=== PATIENT | female | born 1940 | race Caucasian/White ===

== ENCOUNTER 2017-10-10 20:26 | Emergency (ER) | payer MEDICARE, BC ==
[2017-10-10] MEDS ORDERED: HYDROCODONE/APAP 5/325MG TABLET PO ONE (21:01)
--- NOTE | 2017-10-10 21:02 | Emergency Department Record ---
History of Present Illness - General Chief complaint: Extremity Problem Stated complaint: FINGER INJURY Time Seen by Provider: 10/10/17 20:57 Source: Patient, Family Mode of Arrival: Ambulatory Limitations: No limitations - History of Present Illness Initial comments: 77 yo female presents after a fall. She injured her left hand. She only hurts in the left MC area. Skin is intact. She has pain with palpation and ROM. No prior hand fracture or hand disease history. She reports the finger was pointing outward. She straightened by herself prior to arrival. MD Complaint: Extremity pain, Joint pain -: Hour(s) Location: Left -: Yes Arthralgia Radiation: Distal Quality: Aching Consistency: Constant Improves with: Immobilization Worsens with: Exertion, Palpation, Weight bearing Associated Symptoms: Denies other symptoms - Related Data Home Medications Medication Instructions Recorded Confirmed Last Taken Atorvastatin Calcium [Lipitor] 10 mg PO DAILY 10/10/17 10/10/17 Unknown Citalopram Hydrobromide 20 mg PO DAILY 10/10/17 10/10/17 Unknown [Citalopram HBr] Fesoterodine Fumarate [Toviaz] 8 mg PO DAILY 10/10/17 10/10/17 Unknown Levothyroxine Sodium [Synthroid] 150 mcg PO DAILY 10/10/17 10/10/17 Unknown Losartan Potassium [Cozaar] 25 mg PO DAILY 10/10/17 10/10/17 Unknown Meloxicam 15 mg PO DAILY 10/10/17 10/10/17 Unknown Metformin HCl 1,000 mg PO BID 10/10/17 10/10/17 Unknown Metoprolol Succinate [Toprol Xl] 25 mg PO DAILY 10/10/17 10/10/17 Unknown Pioglitazone HCl [Actos] 45 mg PO DAILY 10/10/17 10/10/17 Unknown Previous Rx's Medication Instructions Recorded Hydrocodone/Acetaminophen [Hinckley 1 each PO Q8H #15 tablet 10/10/17 5-325 Tablet] Allergies Allergy/AdvReac Type Severity Reaction Status Date / Time No Known Drug Allergies Allergy Verified 10/10/17 21:20 Review of Systems Constitutional: Denies: Chills, Fever, Malaise, Weakness Eyes: Denies: Eye discharge ENT: Denies: Congestion, Throat pain Respiratory: Denies: Cough Cardiovascular: Denies: Chest pain, Syncope Endocrine: Denies: Fatigue Gastrointestinal: Denies: Abdominal pain, Diarrhea, Nausea, Vomiting Genitourinary: Denies: Dysuria, Urgency Musculoskeletal: Reports: Arthralgia, Joint swelling. Denies: Back pain, Myalgia, Neck pain Skin: Denies: Bruising, Change in color, Rash Neurological: Denies: Headache, Numbness, Tingling, Vertigo, Weakness Psychiatric: Denies: Anxiety Hematological/Lymphatic: Denies: Blood Clots, Easy bleeding, Easy bruising, Swollen glands Physical Exam - General General Appearance: Alert, Oriented x3, Cooperative, No acute distress Limitations: No limitations - Head Head exam: Atraumatic, Normocephalic, Normal inspection Head exam detail: negative: Abrasion, Contusion, Hematoma - Eye Eye exam: Normal appearance. negative: Conjunctival injection, Periorbital swelling, Scleral icterus - ENT ENT exam: Normal exam Ear exam: Normal external inspection Nasal Exam: Normal inspection Mouth exam: Normal external inspection - Neck Neck exam: Normal inspection. negative: Tenderness - Cardiovascular Cardiovascular Exam: Regular rate, Normal rhythm Peripheral Pulses: 2+: Radial (L) - Rectal Rectal exam: Deferred - exam: Deferred - Extremities Extremities exam: Joint swelling, Normal capillary refill, Tenderness. negative : Normal inspection, Full ROM Image of Hand: 1 - mild swelling, no angulation, intact skin, intact sensation - Back Back exam: Reports: Full ROM. Denies: CVA tenderness (R), CVA tenderness (L), Paraspinal tenderness, Tenderness - Neurological Neurological exam: Alert, Oriented X3. negative: Motor sensory deficit - Psychiatric Psychiatric exam: Normal affect, Normal mood - Skin Skin exam: Dry, Intact, Normal color, Warm Course Vital Signs 10/10/17 20:53 Temperature 98 F Pulse Rate [ 74 Pulse Ox Probe] Respiratory 20 Rate Blood Pressure 142/75 [Left Arm] Pulse Ox 98 - Reevaluation(s) Reevaluation #1: XR was read as comminuted distal 5th MC fracture. No dislocation. Splint ordered Referral for follow up made in the ortho specialty clinic 10/10/17 21:31 Disposition Disposition: Discharge Clinical Impression: Metacarpal bone fracture Qualifiers: Encounter type: initial encounter Metacarpal bone: fifth Fracture type: closed Metacarpal location: neck Fracture alignment: displaced Laterality: left Qualified Code(s): S62.337A - Displaced fracture of neck of fifth metacarpal bone, left hand, initial encounter for closed fracture Disposition: Home, Self-Care Condition: (1) Good Instructions: Hand Fracture (ED) Additional Instructions: Call your doctor for close follow up You are being referred to the [facility] Return if you have any concerns with the splint or it comfort Prescriptions: Hydrocodone/Acetaminophen [Hinckley 5-325 Tablet] 1 each PO Q8H #15 tablet Referrals: MARCELINO FELIPE [DOCTOR OF OSTEOPATH] - [facility] [Provider Group] Forms: Patient Portal Access Time of Disposition: 21:34 Quality - Quality Measures Quality Measures: N/A - Blood Pressure Screening Does Patient Have Any of the Following: No Blood Pressure Classification: Hypertensive Reading Systolic Measurement: 142 Diastolic Measurement: 75 Screening for High Blood Pressure: < Pre-Hypertensive BP, F/U Documented > [ G8950] Pre-Hypertensive Follow-up Interventions: Referral to alternative/primary care provider.
--- NOTE | 2017-10-11 08:43 | RADIOLOGY REPORT ---
EXAM: LEFT HAND HISTORY: PAIN. TECHNIQUE: Three views of the left hand were obtained. Comparison: None. Encounter: Initial. FINDINGS: Osteopenia. Comminuted minimally displaced fracture at the base of the distal portion of the fifth metacarpal. Adjacent soft tissue swelling. No other fractures. No dislocation. Degenerative changes throughout the hand and wrist are noted. IMPRESSION: COMMINUTED MINIMALLY DISPLACED FIFTH METACARPAL FRACTURE. OSTEOPENIA. DIFFUSE DEGENERATIVE CHANGE. JOB NUMBER: [id number] MTDD
== END 2017-10-10 22:18 | disposition home or self-care (01) ==
LOC: ER 20:26
DX: S62.317A Displaced fracture of base of fifth metacarpal bone, left hand, initial encounter for closed fracture (principal); W19.XXXA Unspecified fall, initial encounter
CPT/HCPCS: 99283

== ENCOUNTER 2018-06-06 13:21 | Emergency (ER) | payer MEDICARE, BC ==
--- NOTE | 2018-06-06 14:01 | Emergency Department Record ---
History of Present Illness - General Chief Complaint: Fall Injury Stated Complaint: FALL HEAD TRAMA Time Seen by Provider: 06/06/18 13:54 Source: Patient Mode of Arrival: Wheelchair - History of Present Illness Initial Comments: The patient ambulates with a cane and has a hip replacement. She had an unwitnessed fall out on her deck, and hit her head on the plastic ledged step when she fell. She did not lose consciousness. She states she has a headache from the fall. She denies use of blood thinners, aspirin, or ibuprofen. She took an excedrin prior to coming here for her headache. Complaint: Fall Onset/Timin -: Minutes(s) Fall From: Standing When Fall Occurred: Just prior to arrival Fall Witnessed: Yes, by family Place Fall Occurred: Home Loss of Consciousness: None Prolonged Down Time?: No Location: Head Severity: Severe Severity scale (1-10): 9 Quality: Burning, Sharp, Other Associated Symptoms: Headache - Related Data Previous Rx's Medication Instructions Recorded Sulfamethoxazole/Trimethoprim 1 each PO BID #20 tablet 06/06/18 [Bactrim Ds Tablet] Allergies Allergy/AdvReac Type Severity Reaction Status Date / Time No Known Drug Allergies Allergy Verified 10/10/17 21:20 Travel Screening - Travel/Exposure Within Last 30 Days Have you traveled within the last 30 days?: No Review of Systems Reviewed: No additional complaints except as noted below Constitutional: Reports: As per HPI. Denies: Chills, Fever, Malaise, Night sweats, Weakness, Weight change Eyes: Reports: As per HPI. Denies: Eye discharge, Eye pain, Photophobia, Vision change ENT: Reports: As per HPI. Denies: Congestion, Dental pain, Ear pain, Epistaxis , Hearing loss, Throat pain Respiratory: Reports: As per HPI. Denies: Cough, Dyspnea, Hemoptysis, Stridor, Wheezes Cardiovascular: Reports: As per HPI. Denies: Arrhythmia, Chest pain, Dyspnea on exertion, Edema, Murmurs, Orthopnea, Palpitations, Paroxysmal nocturnal dyspnea, Rheumatic Fever, Syncope Endocrine: Reports: As per HPI. Denies: Fatigue, Heat or cold intolerance, Polydipsia, Polyuria Gastrointestinal: Reports: As per HPI. Denies: Abdominal pain, Constipation, Diarrhea, Hematemesis, Hematochezia, Melena, Nausea, Vomiting Genitourinary: Reports: As per HPI. Denies: Abnormal menses, Discharge, Dyspareunia, Dysuria, Frequency, Hematuria, Incontinence, Retention, Urgency Musculoskeletal: Reports: As per HPI. Denies: Arthralgia, Back pain, Gout, Joint swelling, Myalgia, Neck pain Skin: Reports: As per HPI. Denies: Bruising, Change in color, Change in hair/ nails, Lesions, Pruritus, Rash Neurological: Reports: As per HPI. Denies: Abnormal gait, Confusion, Headache, Numbness, Paresthesias, Seizure, Tingling, Tremors, Vertigo, Weakness Psychiatric: Reports: As per HPI. Denies: Anxiety, Auditory hallucinations, Depression, Homicidal thoughts, Suicidal thoughts, Visual hallucinations Hematological/Lymphatic: Reports: As per HPI. Denies: Anemia, Blood Clots, Easy bleeding, Easy bruising, Swollen glands Past Medical History - SOCIAL HISTORY Smoking Status: Never smoker - RESPIRATORY Hx Respiratory Disorders: No - CARDIOVASCULAR Hx Cardio Disorders: Yes Hx Hypertension: Yes Hx Irregular Heartbeat: Yes (afib) - NEURO Hx Neuro Disorders: No - GI Hx GI Disorders: No - Hx Genitourinary Disorders: No - ENDOCRINE Hx Endocrine Disorders: Yes Hx Diabetes: Yes (DM2) Hx Thyroid Disease: Yes (Hypo) - MUSCULOSKELETAL Hx Musculoskeletal Disorders: No - PSYCH Hx Psych Problems: Yes Hx Depression: Yes - HEMATOLOGY/ONCOLOGY Hx Hematology/Oncology Disorders: Yes Hx Cancer: Yes (Breast) Hx Chemotherapy: Yes Hx Radiation Therapy: No Family Medical History Any Significant Family History?: No Physical Exam - General General Appearance: Alert, Oriented x3, Cooperative, Mild distress - Head Head exam: Other (large diagonal laceration at right forehead hairline region approximately 14 cm.) Head exam detail: Laceration (14 cm total length, 5 cm sutured) Image of Face/Head: 1 - laceraton at hairline 1 cm approximate length - Eye Eye exam: Normal appearance, PERRL Pupils: Normal accommodation - ENT ENT exam: Normal exam, Mucous membranes moist, Normal external ear exam, Normal orophraynx, TM's normal bilaterally Ear exam: Normal external inspection. negative: External canal tenderness Nasal Exam: Normal inspection. negative: Discharge, Sinus tenderness Mouth exam: Normal external inspection, Tongue normal Teeth exam: Normal inspection. negative: Dental caries Throat exam: Normal inspection. negative: Tonsillar erythema, Tonsillar exudate - Neck Neck exam: Normal inspection, Full ROM, Other (c collar in place). negative: Tenderness - Respiratory Respiratory exam: Normal lung sounds bilaterally. negative: Chest wall tenderness, Decreased breath sounds, Prolonged expiratory, Respiratory distress - Cardiovascular Cardiovascular Exam: Regular rate, Normal rhythm, Normal heart sounds - GI/Abdominal GI/Abdominal exam: Soft, Normal bowel sounds. negative: Distended, Guarding, Tenderness - Rectal Rectal exam: Deferred - exam: Deferred - Extremities Extremities exam: Normal inspection, Full ROM, Normal capillary refill. negative: Calf tenderness, Pedal edema, Tenderness - Back Back exam: Reports: Normal inspection, Full ROM. Denies: CVA tenderness (R), CVA tenderness (L), Muscle spasm, Paraspinal tenderness, Rash noted, Tenderness , Vertebral tenderness - Neurological Neurological exam: Alert, CN II-XII intact, Normal gait, Oriented X3, Reflexes normal - Psychiatric Psychiatric exam: Normal affect, Normal mood - Skin Skin exam: Dry, Intact, Normal color, Warm Course Vital Signs 06/06/18 13:25 Temperature 98.9 F Pulse Rate 81 Respiratory 18 Rate Blood Pressure 149/83 Pulse Ox 94 L - Reevaluation(s) Reevaluation #1: 06/06/18 15:45 PROCEDURE: Face laceration 5 cm length with abrasion making wound appear 14 cm long. Cleansed wound, copiously irrigated, no FB, no exposed bone, closed wound with 4.0 prolene running interlocking sutures #7. Patient tolerated well. Reevaluation #2: Patient states she can take bactrim without problems. She wishes a script to take with her and will go fill it from here. 06/06/18 16:38 Medical Decision Making - Management Options MDM Management: No Additional Work-up Planned - Data Complexity MDM Data: Labs Ordered and/or Reviewed (UA: 4+ bacteria, 10-15 WBC, + nitrites , tr LE. ), X-Ray Ordered and/or Reviewed (CT Head and C spine Neg. CXR, pelvis both negative for acute fractures.) - Lab Data Result diagrams: 06/06/18 14:55 06/06/18 14:55 Disposition Disposition: Discharge Clinical Impression: Fall (on)(from) incline, initial encounter Laceration of head Qualifiers: Encounter type: initial encounter Location of open wound of head: scalp Foreign body presence: without foreign body Qualified Code(s): S01.01XA - Laceration without foreign body of scalp, initial encounter Head contusion Qualifiers: Encounter type: initial encounter Contusion of head detail: other part of head Qualified Code(s): S00.83XA - Contusion of other part of head, initial encounter Concussion Qualifiers: Encounter type: initial encounter Loss of consciousness presence/duration: without LOC Qualified Code(s): S06.0X0A - Concussion without loss of consciousness, initial encounter UTI (urinary tract infection) Qualifiers: Urinary tract infection type: acute cystitis Hematuria presence: without hematuria Qualified Code(s): N30.00 - Acute cystitis without hematuria Disposition: Home, Self-Care Condition: (1) Good Instructions: Concussion (ED), Fall Prevention for Older Adults (ED) Additional Instructions: Ice to contusions. You may develop "black" beneath your eyes due to the laceration above your eyes. Tylenol as directed as needed for pain. Follow up with PCP as needed. Sutures out here 7 days. Prescriptions: Sulfamethoxazole/Trimethoprim [Bactrim Ds Tablet] 1 each PO BID #20 tablet Forms: Patient Portal Access Quality - Quality Measures Quality Measures: N/A, Blunt Head Trauma (>2yr) - [place] Coma Scale Sophia Coma Scale: Sophia Coma Scale Eye Response: (4) Open spontaneously Motor Response: (6) Obeys commands Verbal Response: (5) Oriented [place] Total: 15 - Blunt Head Trauma - Adult Quality Measure: Measure #415: Utilization of CT for Minor Blunt Head Trauma ICD10 Codes Entered: Yes Was CT ordered: Yes Does Patient Have Any of the Following: No Exclusions Patient Presented Within 24 Hours of Injury: Yes [place] Score: [address] for Minor Blunt Head Trauma: < CT Done, Appropriate Indication > [G9529] Additional Inclusion Criteria: Within 24hrs (AND) GCS of 15 (AND) CT ordered. [ G9530] Indications For CT: Short-Term Memory Deficits w/Loss of Consciousness - Blood Pressure Screening Does Patient Have Any of the Following: No, Active Dx of HTN Blood Pressure Classification: Pre-Hypertensive BP Reading Systolic Measurement: 149 Diastolic Measurement: 83 Screening for High Blood Pressure: Patient Exclusion, Hx of HTN [G9744]
[2018-06-06 15:06] LABS: BASO % 0.2 % (0-6); EOS % 2.9 % (0-6); GRAN % 76.5 % (47-80); HEMATOCRIT 33.6 % (35.0-47.0); HEMOGLOBIN 10.1 gm/dl (11.6-16.0); LYMPH % 13.7 % (16-45); MEAN CELL VOLUME 92.3 fl (81-97); MEAN CORPUSCULAR HEMOGLOBIN 27.7 pg (27-33); MEAN CORPUSCULAR HGB CONC 30.1 g/dl (32-36); MEAN PLATELET VOLUME 8.8 fl (7.4-10.4); MONO % 6.7 % (0-9); PLATELET COUNT 261 K/uL (130-400); RED BLOOD COUNT 3.64 M/uL (3.80-5.40); RED CELL DISTRIBUTION WIDTH 15.4 % (11.5-14.5); WHITE BLOOD COUNT W/O DIFF 5.6 K/uL (4.2-12.2)
[2018-06-06 15:19] LABS: BLOOD UREA NITROGEN 21 mg/dL (8-23); EST GLOMERULAR FILTRATION RATE 57 mL/min; TOTAL PROTEIN 6.1 g/dL (6.6-8.7)
[2018-06-06 15:21] LABS: GLUCOSE,RANDOM 129 mg/dL (74-109)
[2018-06-06 15:23] LABS: PARTIAL THROMBOPLASTIN TIME 24.7 SECONDS (24.5-39.1); PROTHROMBIN TIME (PATIENT) 11.2 SECONDS (9.5-12.1)
[2018-06-06 15:24] LABS: ALBUMIN 3.9 g/dL (4.0-5.0); ALKALINE PHOSPHATASE 84 U/L (35-104); ALT/SGPT 12 U/L (<33); AST/SGOT 17 U/L (10.0-35.0)
[2018-06-06 15:25] LABS: BILIRUBIN,DIRECT < 0.2 mg/dL (0-0.3)
[2018-06-06 16:18] LABS: URINE APPEARANCE CLEAR; URINE BILIRUBIN NEGATIVE (NEGATIVE); URINE BLOOD NEGATIVE (NEGATIVE); URINE COLOR YELLOW; URINE GLUCOSE (UA) NEGATIVE (NEGATIVE); URINE KETONE NEGATIVE (NEGATIVE); URINE LEUKOCYTE ESTERASE SMALL (NEGATIVE); URINE NITRITE POSITIVE (NEGATIVE); URINE PROTEIN NEGATIVE (NEGATIVE); URINE UROBILINOGEN 0.2 E.U./dL (0.20 - 1.00)
[2018-06-06 16:26] LABS: URINE BACTERIA 4+; URINE EPITHELIAL CELLS 0 - 2 (FEW); URINE RBC NONE SEEN (NONE SEEN)
--- NOTE | 2018-06-07 08:05 | CT SCAN REPORT ---
EXAM: CT SCAN HEAD WO CONTRAST HISTORY: INJURY. TECHNIQUE: Sequential axial images were obtained from the foramen magnum to the vertex without contrast administration. FINDINGS: Brain volume is normal. There is periventricular small vessel ischemic change. No large territorial infarct, hemorrhage, mass effect, or midline shift. The orbits, paranasal sinuses, and mastoid air cells are normal. No depressed skull fracture. IMPRESSION: NO ACUTE INTRACRANIAL ABNORMALITIES APPRECIATED. JOB NUMBER: [id number] [facility]
--- NOTE | 2018-06-07 08:09 | CT SCAN REPORT ---
EXAM: CT SCAN CERVICAL SPINE WO CONTRAST HISTORY: NECK PAIN. TECHNIQUE: Sequential axial images were obtained through the cervical spine without intravenous contrast administration. Sagittal and coronal reformatted images were performed. FINDINGS: There is multilevel degenerative change. No evidence of fracture, subluxation, or perched facet. There is pannus formation at the atlantoaxial joint space. IMPRESSION: MULTILEVEL DEGENERATIVE CHANGE. NO EVIDENCE OF FRACTURE, SUBLUXATION, OR PERCHED FACET. PANNUS AT THE ATLANTOAXIAL JOINT SPACE. JOB [facility]BER: [id number] [facility]
--- NOTE | 2018-06-07 08:11 | RADIOLOGY REPORT ---
EXAM: PELVIS, AP HISTORY: INJURY. TECHNIQUE: Single AP view of the pelvis was performed. COMPARISON: None. FINDINGS: Postop surgical change of the left hip joint. Underlying osteopenia. No evidence of acute fracture. IMPRESSION: 1. UNDERLYING OSTEOPENIA. 2. LEFT HIP PROSTHESIS IN PLACE. JOB NUMBER: [id number] [facility]
--- NOTE | 2018-06-07 08:16 | RADIOLOGY REPORT ---
EXAM: CHEST 2 VIEWS HISTORY: DIFFICULTY IN BREATHING. TECHNIQUE: Frontal and lateral views of the chest were performed. COMPARISON: 11/22/2015 FINDINGS: Heart size normal. Lung tapia are clear. No infiltrate or pleural effusion. Postop surgical clips, left axillary region. Postop surgical change, right shoulder. IMPRESSION: NO ACUTE PULMONARY DISEASE PROCESS. JOB NUMBER: [id number] MTDD
== END 2018-06-06 17:01 | disposition home or self-care (01) ==
LOC: ER 13:21
DX: S06.0X0A Concussion without loss of consciousness, initial encounter (principal); S01.81XA Laceration without foreign body of other part of head, initial encounter; W18.30XA Fall on same level, unspecified, initial encounter; I48.91 Unspecified atrial fibrillation; I10 Essential (primary) hypertension; E11.9 Type 2 diabetes mellitus without complications; Z79.84 Long term (current) use of oral hypoglycemic drugs; N39.0 Urinary tract infection, site not specified; B96.20 Unspecified Escherichia coli [E. coli] as the cause of diseases classified elsewhere; E03.9 Hypothyroidism, unspecified
CPT/HCPCS: 12013; 70450; 71046; 72125; 72170; 80048; 80076; 81001; 83605; 85025; 85379; 85610; 85730; 99283

== ENCOUNTER 2018-06-13 11:32 | Emergency (ER) | payer MEDICARE, BC ==
--- NOTE | 2018-06-13 12:00 | Emergency Department Record ---
History of Present Illness - General Chief Complaint: Suture removal Stated Complaint: SUTURE REMOVAL FROM HEAD Time Seen by Provider: 06/13/18 11:53 Source: Patient Mode of arrival: Ambulatory Limitations: No limitations - History of Present Illness Initial Comments: pt wel healed. no vomiting Onset/Timin -: Week(s) Initial Visit For: Other Returns Today for: Staple/stitch removal Symptoms Since Prior Visit: No new symptoms Associated Symptoms: None - Related Data Previous Rx's Medication Instructions Recorded Sulfamethoxazole/Trimethoprim 1 each PO BID #20 tablet 06/06/18 [Bactrim Ds Tablet] Allergies Allergy/AdvReac Type Severity Reaction Status Date / Time No Known Drug Allergies Allergy Verified 10/10/17 21:20 Travel Screening - Travel/Exposure Within Last 30 Days Have you traveled within the last 30 days?: No - Travel/Exposure Within Last Year Have you traveled outside the [place] in the last year?: No - Additonal Travel Details Have you been exposed to anyone with a communicable illness?: No - Travel Symptoms Symptom Screening: None Review of Systems Reviewed: No additional complaints except as noted below Constitutional: Reports: As per HPI. Denies: Chills, Fever, Malaise, Night sweats, Weakness, Weight change Eyes: Reports: As per HPI. Denies: Eye discharge, Eye pain, Photophobia, Vision change ENT: Reports: As per HPI. Denies: Congestion, Dental pain, Ear pain, Epistaxis , Hearing loss, Throat pain Respiratory: Reports: As per HPI. Denies: Cough, Dyspnea, Hemoptysis, Stridor, Wheezes Cardiovascular: Reports: As per HPI. Denies: Arrhythmia, Chest pain, Dyspnea on exertion, Edema, Murmurs, Orthopnea, Palpitations, Paroxysmal nocturnal dyspnea, Rheumatic Fever, Syncope Endocrine: Reports: As per HPI. Denies: Fatigue, Heat or cold intolerance, Polydipsia, Polyuria Gastrointestinal: Reports: As per HPI. Denies: Abdominal pain, Constipation, Diarrhea, Hematemesis, Hematochezia, Melena, Nausea, Vomiting Genitourinary: Reports: As per HPI. Denies: Abnormal menses, Discharge, Dyspareunia, Dysuria, Frequency, Hematuria, Incontinence, Retention, Urgency Musculoskeletal: Reports: As per HPI. Denies: Arthralgia, Back pain, Gout, Joint swelling, Myalgia, Neck pain Skin: Reports: As per HPI. Denies: Bruising, Change in color, Change in hair/ nails, Lesions, Pruritus, Rash Neurological: Reports: As per HPI. Denies: Abnormal gait, Confusion, Headache, Numbness, Paresthesias, Seizure, Tingling, Tremors, Vertigo, Weakness Psychiatric: Reports: As per HPI. Denies: Anxiety, Auditory hallucinations, Depression, Homicidal thoughts, Suicidal thoughts, Visual hallucinations Hematological/Lymphatic: Reports: As per HPI. Denies: Anemia, Blood Clots, Easy bleeding, Easy bruising, Swollen glands Past Medical History - SOCIAL HISTORY Smoking Status: Never smoker Alcohol Use: Rare Drug Use: None - RESPIRATORY Hx Respiratory Disorders: No - CARDIOVASCULAR Hx Cardio Disorders: Yes Hx Hypertension: Yes Hx Irregular Heartbeat: Yes (afib) - NEURO Hx Neuro Disorders: No - GI Hx GI Disorders: No - Hx Genitourinary Disorders: No - ENDOCRINE Hx Endocrine Disorders: Yes Hx Diabetes: Yes (DM2) Hx Thyroid Disease: Yes (Hypo) - MUSCULOSKELETAL Hx Musculoskeletal Disorders: No - PSYCH Hx Psych Problems: Yes Hx Depression: Yes - HEMATOLOGY/ONCOLOGY Hx Hematology/Oncology Disorders: Yes Hx Cancer: Yes (Breast) Hx Chemotherapy: Yes Hx Radiation Therapy: No Family Medical History Any Significant Family History?: No Physical Exam - General General Appearance: Alert, Oriented x3, Cooperative, No acute distress - Head Head exam: Normal inspection Head exam detail: Laceration - Eye Eye exam: Normal appearance, PERRL Pupils: Normal accommodation - ENT ENT exam: Normal exam, Mucous membranes moist, Normal external ear exam, Normal orophraynx Ear exam: Normal external inspection. negative: External canal tenderness Nasal Exam: Normal inspection. negative: Discharge, Sinus tenderness Mouth exam: Normal external inspection, Tongue normal Teeth exam: Normal inspection. negative: Dental caries Throat exam: Normal inspection. negative: Tonsillar erythema, Tonsillar exudate - Neck Neck exam: Normal inspection, Full ROM. negative: Tenderness - Respiratory Respiratory exam: Normal lung sounds bilaterally. negative: Respiratory distress - Cardiovascular Cardiovascular Exam: Regular rate, Normal rhythm, Normal heart sounds - GI/Abdominal GI/Abdominal exam: Soft, Normal bowel sounds. negative: Tenderness - Rectal Rectal exam: Deferred - exam: Deferred - Extremities Extremities exam: Normal inspection, Full ROM, Normal capillary refill. negative: Tenderness - Back Back exam: Reports: Normal inspection, Full ROM. Denies: Muscle spasm, Rash noted, Tenderness - Neurological Neurological exam: Alert, CN II-XII intact, Normal gait, Oriented X3 - Psychiatric Psychiatric exam: Normal affect, Normal mood - Skin Skin exam: Dry, Intact, Normal color, Warm Type of lesion: Laceration (well healed) Course Vital Signs 06/13/18 11:36 Temperature 98.5 F Pulse Rate 76 Respiratory 18 Rate Blood Pressure 143/72 Pulse Ox 93 L Disposition Disposition: Discharge Clinical Impression: Visit for suture removal Condition: (1) Good Instructions: Stitches Removal (ED) Additional Instructions: follow up with family doctor. return sooner if worse. Quality - Quality Measures Quality Measures: N/A - Blood Pressure Screening Does Patient Have Any of the Following: Active Dx of HTN Blood Pressure Classification: Hypertensive Reading Systolic Measurement: 143 Diastolic Measurement: 72 Screening for High Blood Pressure: Patient Exclusion, Hx of HTN [G9744]
== END 2018-06-13 12:14 | disposition home or self-care (01) ==
LOC: ER 11:32
DX: Z48.02 Encounter for removal of sutures (principal); I10 Essential (primary) hypertension

== ENCOUNTER 2018-07-24 14:37 | Inpatient (IN) | payer MEDICARE, BC ==
[2018-07-25] MEDS ORDERED: HYDROCODONE/APAP 5/325MG TABLET PO PRN (14:49)
[2018-07-25] MEDS ORDERED: TRAMADOL HCL 50 MG TABLET PO PRN (15:00)
--- NOTE | 2018-07-25 15:44 | Rehab Evaluation ---
Patient Information - Patient Information Diagnosis: R Hip OA Ordered Treatment: OT Evaluate and Treat Status: Initial Evaluation Surgery: Yes (R HARMAN) Date of Surgery: 07/22/18 Past Medical/Surgical Hx: PAST MEDICAL/SURGICAL HISTORY Past Surgical History Bilateral Shoulder Left Hip Replacement Right Knee Replacement Bilateral Mastectomy Cholecystectomy Appendectomy Appendectomy Hysterectomy PMH - Respiratory Hx Respiratory Disorders Yes Hx Asthma No Hx Bronchitis No Hx Chronic Obstructive No Pulmonary Disease (COPD) Hx Dyspnea No Hx Pneumonia No Hx Pulmonary Embolism No Hx Sleep Apnea Yes Hx Tuberculosis No Hx of CPAP Yes: Pt does not use. PMH - Cardiovascular Hx Cardiovascular Disorders Yes Hx Abnormal EKG No Hx Cardiac Catheterization No Hx Chest Pain No Hx Congestive Heart Failure No Hx Deep Vein Thrombosis No Hx Edema No Hx Heart Attack No Hx Hypertension Yes Hx Hypotension No Hx Irregular Heartbeat Yes: afib Hx Palpitations No Hx Pacemaker/Defibrillator No Hx Vascular Disease No PMH - Neuro Hx Neurological Disorders No PMH - GI Hx Gastrointestinal Disorders No Hx Abdominal Pain No Hx Celiac Disease No Hx Crohn's Disease No Hx Diverticulitis No Hx Gastrointestinal Bleed No Hx Gastroesophageal Reflux Yes Hx Hepatitis/Jaundice No Hx Hiatal Hernia Yes Hx Irritable Bowel No Hx Liver Disease No Hx Nausea/Vomiting No Hx Obstructive Bowel No Hx Pancreatitis No Hx Rectal Bleeding No Hx Ulcer Yes: within the last couple years/Dr. Del Rosario PMH - Hx Genitourinary Disorders No Hx Bladder Problem No Hx Dialysis No Hx Kidney Stones No Hx Renal Disease No Hx Urinary Tract Infection Yes: Pt completed Cipro for UTI before this surgery. Comment: Hysterectomy, urinary incontinence PMH - Endocrine Hx Endocrine Disorders Yes Hx Diabetes Yes: DM2 Hx Thyroid Disease Yes: Hypo PMH - Musculoskeletal Hx Musculoskeletal Disorders Yes Hx Arthritis Yes Hx Back Injury No Hx Fibromyalgia No Hx Gout No Hx Musculoskeletal Disease No Hx Osteoporosis No PMH - Psych Hx Psychiatric Problems Yes Hx Anxiety Yes Hx Behavior Problems No Hx Depression Yes Hx Emotional Abuse No Hx Sexual Abuse No Hx Suicide Attempt No Major Depressive Episode No Feelings of Hopelessness No PMH - Hematology/Oncology Hx Hematology/Oncology Yes Disorders Hx Anemia Yes: takes iron 325mg bid Hx Blood Disorders No Hx Bruising No Hx Cancer Yes: Breast Hx Chemotherapy Yes Hx Radiation Therapy No Hx Clotting Problems No Hx Sickle Cell Disease No Hx Unexplained Bleeding No Hx Blood Transfusion Reaction No Premorbid Status: Detail (Pt reports ambulating with either her 2WW or 4WW MEDICAL REPRESENTATIVE. Pt was sitting on extended tub bench to complete showering. She was able to shower from seated position IND and dress IND MEDICAL REPRESENTATIVE using in home baby sitter and sock aid.) Social History: Detail (Pt lives with spouse in a 2-story house with basement. She primarily lives on first floor but states that on the rare occassion she had to go upstairs, she did so on hands and knees. Pt mostly uses garage entrance which has 2 steps to enter. Alternate entry has 3 steps up onto deck, then once on deck there is one more step to enter house. Pt has grab bars throughout home including in bathroom. She has an elevated toilet seat, extended tub bench, hand held shower head, curtain enclosure around shower, in home baby sitter, sock aid, 2WW and 4WW.) Precautions: [place], Fall, Other (hip precautions) - Time With Patient Total Time Spent With Patient (Min): 30 Treatment Procedures: Detail (OT eval LOW) Subjective Information - Subjective Information Per Patient (Pt reports history of frequent falls and unsteady balance. Last fall resulted in a fx to L 5th metacarpal.) Objective Data - Pain Pain Present: Yes Pain Intensity: 8 (Pt just arrived to [facility] and had not been administered pain medication at start of eval. Nsg aware and brought pain medication during eval.) Pain Scale Used: Numeric (1 - 10) - Mental Status Patient Orientation: Oriented x3 - Visual Perception Appears within normal limits for therapeutic activities - ROM Not within normal limits (Pt has suffered bilateral rotator cuff injuries with R shld being more severely affected then L. Due to patient being right handed, she states that she often uses LUE to assist in raising RUE over head to reach items. Pt is limited in shld flex, abd, ER, elbow flex/ext, forearm sup/pron on the Right. She feels this used to be a little better but has slowly become more weak. LUE is WNL for all ROM.) - Strength/Tone Not within normal limits (MMT grossly 3 to 3+/5 on RUE within available ROM. MMT grossly 3+ to 4/5 on RUE. Weakened nic gross grasp.) - Coordination Appears within normal limits for therapeutic activities - Bed Mobility Independent - Transfers Needs Assist (CGA sit<>stand t/f) - Balance Balance Sitting: Good Balance Standing: Fair (using 2WW) - Sensation Intact - Gait Detail (Pt ambulated from room (23) to nurses station with 2WW CGA. Reported fatigue and increased pain once at rest from ambulation.) - ADL's/IADL's Detail (No ADL equipment available to trial drsg. This will be further evaluated at next treatment.) Therapy Assessment - Therapy Assessment Detail (Pt presents with decreased endurance for ADLs and functional mobility, decreased independence with ADLs, nic UE weakness, and pain. She would benefit from skilled OT services to further address safety and independence with ADLs using ADL equipment, increase endurance and functional mobility, and increase UE strength to assist with pushing up into standing, bed mobility, and utilizing walker.) Problem List - Problem List Occupational Therapy Problem List: Detail (1. Decreased endurance to complete ADLs 2. Decreased independence and safety with ADLs 3. BUE weakness) Goals - Goals Occupational Therapy Goals: 1. Pt to be independent with UB and LB drsg using ADL equipment. 2. Pt to be independent with showering using AD. 3. Increase edurance to complete ADLs. 4. Pt able to ambulate household distances safely and IND using 2WW Plan - Plan Occupational Therapy Plan: Pt to be treated by OT 2-4 times a week M- to address limitations with ADL independence and safety, decreased endurance to complete ADLs, and BUE weakness.
[2018-07-25] MEDS: METFORMIN 500 MG TABLET PO SCH (17:53)
[2018-07-25] MEDS: SENNOSIDES/DOCUSATE SODIUM UD CAPSULE PO SCH (21:46)
[2018-07-25] MEDS: ATORVASTATIN 20 MG TABLET PO SCH (21:46)
[2018-07-25] MEDS: HYDROCODONE/APAP 5/325MG TABLET PO PRN (21:56)
[2018-07-26] MEDS: HYDROCODONE/APAP 5/325MG TABLET PO PRN (06:25)
[2018-07-26] MEDS: LEVOTHYROXINE SODIUM 150 MCG TABLET PO SCH (06:25)
[2018-07-26] MEDS: PANTOPRAZOLE SODIUM 40 MG TABLET PO SCH (06:25)
[2018-07-26] MEDS ORDERED: TRAMADOL HCL 50 MG TABLET PO PRN (07:55)
[2018-07-26] MEDS: METFORMIN 500 MG TABLET PO SCH ×2 (08:28→17:30)
[2018-07-26] MEDS: TRAMADOL HCL 50 MG TABLET PO PRN (08:37)
[2018-07-26] MEDS ORDERED: ASPIRIN 81 MG TABEC PO SCH (10:00)
[2018-07-26] MEDS ORDERED: LOSARTAN POTASSIUM 25 MG TABLET PO SCH (10:00)
[2018-07-26] MEDS: METOPROLOL SUCC 25 MG TAB.ER PO SCH (10:15)
[2018-07-26] MEDS: CELECOXIB 100 MG CAPSULE PO SCH (10:15)
[2018-07-26] MEDS: ASPIRIN 81 MG TABEC PO SCH ×2 (10:15→21:18)
[2018-07-26] MEDS: MAGNESIUM HYDROXIDE 30 ML UDC PO PRN (10:15)
[2018-07-26] MEDS: SENNOSIDES/DOCUSATE SODIUM UD CAPSULE PO SCH ×2 (10:16→21:18)
[2018-07-26] MEDS: PIOGLITAZONE HCL 15 MG TABLET PO SCH (10:16)
[2018-07-26] MEDS: OXYBUTYNIN CHLORIDE 5MG TABLET PO SCH (10:16)
[2018-07-26] MEDS: CITALOPRAM 20 MG TABLET PO SCH (10:16)
[2018-07-26] MEDS: FERROUS SULFATE 325 MG TAB PO SCH ×2 (10:17→17:30)
[2018-07-26 11:25] LABS: URINE APPEARANCE CLEAR; URINE BILIRUBIN NEGATIVE (NEGATIVE); URINE BLOOD NEGATIVE (NEGATIVE); URINE COLOR YELLOW; URINE GLUCOSE (UA) NEGATIVE (NEGATIVE); URINE KETONE NEGATIVE (NEGATIVE); URINE LEUKOCYTE ESTERASE NEGATIVE (NEGATIVE); URINE NITRITE NEGATIVE (NEGATIVE); URINE PROTEIN NEGATIVE (NEGATIVE); URINE UROBILINOGEN 0.2 E.U./dL (0.20 - 1.00)
--- NOTE | 2018-07-26 11:56 | History & Physical ---
History of Present Illness - Date Date of Service for History & Physical: 07/26/18 - History of Present Illness Admitting Diagnosis: right hip oa History of Present Illness: patient admitted to swing bed for rehab of the right hip replacement done at [facility] by Dr. Aj on 07/22/2018. Primary drMarcelo is dr Barnard. Currently using asa 81 mg BID for DVT prophylaxis and she is having trouble with constipation. General - Cognitive Patterns Speech: Normal Thought Process: Intact Thought Content: Normal Orientation: Oriented x3 - Communication Preferred Language?: Irish Operational Communication Chief Required: No Level of Education: High School Preferred Method of Learning: Seeing, Doing, Reading Comprehension Ability: No Impairment Able to Read: Yes Able to Write: Yes Select best description of speech pattern: Clear Speech Ability to express ideas and wants: Understood Understanding verbal content: Understands - Mood and Behavior Patterns Appearance: Well Groomed Mood: Normal Attitude: Cooperative Motor Activity: Calm Affect: Appropriate Hallucinations: Denies - Psychosocial Well-Being Usual Living Arrangement: Spouse Living Arrangement Comment: 2 dogs in home Relationship Status: Current and Past Employment History: Retired Clubs/Organizations Belongs To: none Mormonism: Unknown Verbalizes Interest in Activities During Stay: No Personality: Introverted States they do not want to participate in group activities: No Patient Involved in the Community: No Patient Drives: Yes - Physical Functioning Activity Level: Up with assist x1 Turning: With partial assist ROM Ability: Limited/Compromised Assistive Devices: 2 Wheel Walker Ambulation Ability: Independent Bed Mobility: Needs Assist Transfer Ability: Needs Assist Bathing Ability: Independent Personal Hygiene: Independent Dressing Ability: Needs Assist Eating (Feeding) Ability: Independent Toileting Ability: Needs Assist Administer Own Medication: Independent - Continence Bowel Pattern: Constipated Bladder Pattern: Frequency, Urgency, Incontinent Urinary Incontinence: Urge - Dental Status Unable to examine: No Broken or loosely fitting full or partial dentures: No No natural teeth or tooth fragment(s) (edentulous): Yes Abnormal mouth tissue (ulcers, masses, oral lesions, etc.): No Obvious or likely cavity or broken natural teeth: No Inflamed or bleeding gums or loose natural teeth: No Mouth/facial pain, discomfort or difficulty chewing: No - Nutrition Screening Poor oral intake > 1 week: No Unplanned weight loss in specified time frame: No Nutrition Support via tube feedings or parenteral nutrition: No Pressure Ulcer: No Significantly underweight define as BMI <18.5 kg/m2: No Albumin <2.5mg/dL: No Persistent nausea/vomiting/diarrhea >3 days: No Difficulty chewing/swallowing/mouth sores: No Admitting Diagnosis: No Nutrition Risk Score: Low Risk Review of Systems Reviewed: No additional complaints except as noted below Constitutional: Reports: As per HPI. Denies: Chills, Fever, Malaise, Night sweats, Weakness, Weight change Eyes: Reports: As per HPI. Denies: Eye discharge, Eye pain, Photophobia, Vision change ENT: Reports: As per HPI. Denies: Congestion, Dental pain, Ear pain, Epistaxis , Hearing loss, Throat pain Respiratory: Reports: As per HPI. Denies: Cough, Dyspnea, Hemoptysis, Stridor, Wheezes Cardiovascular: Reports: As per HPI. Denies: Arrhythmia, Chest pain, Dyspnea on exertion, Edema, Murmurs, Orthopnea, Palpitations, Paroxysmal nocturnal dyspnea, Rheumatic Fever, Syncope Endocrine: Reports: As per HPI. Denies: Fatigue, Heat or cold intolerance, Polydipsia, Polyuria Gastrointestinal: Reports: As per HPI, Constipation. Denies: Abdominal pain, Diarrhea, Hematemesis, Hematochezia, Melena, Nausea, Vomiting Genitourinary: Reports: As per HPI. Denies: Abnormal menses, Discharge, Dyspareunia, Dysuria, Frequency, Hematuria, Incontinence, Retention, Urgency Musculoskeletal: Reports: As per HPI, Other (right hip pain). Denies: Arthralgia, Back pain, Gout, Joint swelling, Myalgia, Neck pain Skin: Reports: As per HPI. Denies: Bruising, Change in color, Change in hair/ nails, Lesions, Pruritus, Rash Neurological: Reports: As per HPI. Denies: Abnormal gait, Confusion, Headache, Numbness, Paresthesias, Seizure, Tingling, Tremors, Vertigo, Weakness Psychiatric: Reports: As per HPI. Denies: Anxiety, Auditory hallucinations, Depression, Homicidal thoughts, Suicidal thoughts, Visual hallucinations Hematological/Lymphatic: Reports: As per HPI. Denies: Anemia, Blood Clots, Easy bleeding, Easy bruising, Swollen glands Past Medical History - SOCIAL HISTORY Smoking Status: Never smoker - SURGICAL HISTORY Past Surgical History: Bilateral Shoulder. Left Hip Replacement. Right Knee Replacement. Bilateral Mastectomy. Cholecystectomy. Appendectomy. Appendectomy. Hysterectomy - RESPIRATORY Hx Respiratory Disorders: Yes Hx Asthma: No Hx Bronchitis: No Hx COPD: No Hx Dyspnea: No Hx Pneumonia: No Hx Pulmonary Embolism: No Hx Sleep Apnea: Yes Hx Tuberculosis: No - CARDIOVASCULAR Hx Cardio Disorders: Yes Hx Abnormal EKG: No Hx Cardiac Cath: No Hx Chest Pain: No Hx CHF: No Hx Deep Vein Thrombosis: No Hx Edema: No Hx Heart Attack: No Hx Hypertension: Yes Hx Hypotension: No Hx Irregular Heartbeat: Yes (afib) Hx Palpitations: No Hx Pacemaker/Defib: No Hx Vascular Disease: No - NEURO Hx Neuro Disorders: No - GI Hx GI Disorders: No Hx Abdominal Pain: No Hx Celiac Disease: No Hx Crohn's Disease: No Hx Diverticulitis: No Hx GI Bleed: No Hx Reflux: Yes Hx Hepatitis/Jaundice: No Hx Hiatal Hernia: Yes Hx Irritable Bowel: No Hx Liver Disease: No Hx Nausea/Vomiting: No Hx Obstructive Bowel: No Hx Pancreatitis: No Hx Rectal Bleeding: No Hx Ulcer: Yes (within the last couple years/Dr. Del Rosario) - Hx Genitourinary Disorders: No Hx Bladder Problem: No Hx Dialysis: No Hx Kidney Stones: No Hx Renal Disease: No Hx UTI: Yes (Pt completed Cipro for UTI before this surgery.) Comment:: Hysterectomy, urinary incontinence - ENDOCRINE Hx Endocrine Disorders: Yes Hx Diabetes: Yes (DM2) - MUSCULOSKELETAL Hx Musculoskeletal Disorders: Yes Hx Arthritis: Yes Hx Back Injury: No Hx Fibromyalgia: No Hx Gout: No Hx Musculoskeletal Disease: No Hx Osteoporosis: No - PSYCH Hx Psych Problems: Yes Hx Anxiety: Yes Hx Behavior Problems: No Hx Depression: Yes Hx Emotional Abuse: No Hx Sexual Abuse: No Hx Suicide Attempt: No Major Depressive Episode: No Feelings of Hopelessness: No - HEMATOLOGY/ONCOLOGY Hx Hematology/Oncology Disorders: Yes Hx Anemia: Yes (takes iron 325mg bid) Hx Blood Disorders: No Hx Bruising: No Hx Cancer: Yes (Breast) Hx Chemotherapy: Yes Hx Radiation Therapy: No Hx Clotting Problems: No Hx Sickle Cell Disease: No Hx Unexplained Bleeding: No Hx Blood Transfusions: Yes (with knee surgery) Hx Blood Transfusion Reaction: No Family Medical History Any Significant Family History?: Yes Family Hx Comment (NOT TO BE USED IN PLACE OF ITEMS BELOW): Family history of DM Hx Alcohol Use: Father Hx Cancer: Brother/Sister *Cancer Comment: colon Hx Diabetes: Brother/Sister H&P Meds/Allergies - Allergies Allergies: Allergies Allergy/AdvReac Type Severity Reaction Status Date / Time No Known Drug Allergies Allergy Verified 10/10/17 21:20 - Home Medications Previous Rx's Medication Instructions Recorded Sulfamethoxazole/Trimethoprim 1 each PO BID #20 tablet 06/06/18 [Bactrim Ds Tablet] - Active Medications Active Medications: Current Medications Hydrocodone Bitart/Acetaminophen (Anchor 10mg/325mg) 1 each PO Q4H PRN PRN Reason: PAIN - MOD TO SEVERE (5-10) Aspirin (Ecotrin (Ec)) 81 mg PO BID [facility] Last Admin: 07/26/18 10:15 Dose: 81 mg Atorvastatin Calcium (Lipitor) 10 mg PO QHS [facility] Last Admin: 07/25/18 21:46 Dose: 10 mg Celecoxib (Celebrex) 200 mg PO DAILY [facility] Last Admin: 07/26/18 10:15 Dose: 200 mg Citalopram Hydrobromide (Celexa) 20 mg PO DAILY [facility] Last Admin: 07/26/18 10:16 Dose: 20 mg Ferrous Sulfate (Iron) 325 mg PO BIDWM [facility] Last Admin: 07/26/18 10:17 Dose: 325 mg Levothyroxine Sodium (Synthroid) 150 mcg PO DAILYTHY [facility] Last Admin: 07/26/18 06:25 Dose: 150 mcg Losartan Potassium (Cozaar) 25 mg PO DAILY [facility] Last Admin: 07/26/18 10:16 Dose: 25 mg Magnesium Hydroxide (Milk Of Magnesium) 30 ml PO ONCE PRN PRN Reason: CONSTIPATION Last Admin: 07/26/18 10:15 Dose: 30 ml Metformin HCl (Glucophage Ir) 1,000 mg PO BIDWM [facility] Last Admin: 07/26/18 08:28 Dose: 1,000 mg Metoprolol Succinate (Toprol Xl) 25 mg PO DAILY [facility] Last Admin: 07/26/18 10:15 Dose: 25 mg Oxybutynin Chloride (Ditropan) 10 mg PO DAILY [facility] Last Admin: 07/26/18 10:16 Dose: 10 mg Pantoprazole Sodium (Protonix) 40 mg PO DAILYAC [facility] Last Admin: 07/26/18 06:25 Dose: 40 mg Pioglitazone HCl (Actos) 45 mg PO DAILY [facility] Last Admin: 07/26/18 10:16 Dose: 45 mg Senna/Docusate Sodium (Senna Plus) 2 each PO BID [facility] Last Admin: 07/26/18 10:16 Dose: 2 each Tramadol HCl (Ultram) 100 mg PO Q4H PRN PRN Reason: PAIN - MILD TO MODERATE (1-7) Tramadol HCl (Ultram) 50 mg PO Q4H PRN PRN Reason: PAIN - MILD TO MODERATE (1-7) Last Admin: 07/26/18 08:37 Dose: 50 mg Physical Exam - Vital Signs Vital Signs: Vital Signs - Last 24 Hrs Temp Pulse Resp BP BP Pulse Ox 07/26/18 08:00 98.1 F 82 16 125/53 92 L 07/25/18 19:47 98.8 F 80 16 113/53 94 L 07/25/18 16:09 97.7 F 102/49 07/25/18 13:56 97.7 F 76 18 102/49 98 - General General Appearance: Alert, Oriented x3, Cooperative, No acute distress - Head Head exam: Normal inspection - Eye Eye exam: Normal appearance, PERRL Pupils: Normal accommodation - ENT ENT exam: Normal exam, Mucous membranes moist, Normal external ear exam, Normal orophraynx, TM's normal bilaterally Ear exam: Normal external inspection. negative: External canal tenderness Nasal Exam: Normal inspection. negative: Discharge, Sinus tenderness Mouth exam: Normal external inspection, Tongue normal Teeth exam: Normal inspection. negative: Dental caries Throat exam: Normal inspection. negative: Tonsillar erythema, Tonsillar exudate - Neck Neck exam: Normal inspection, Full ROM. negative: Tenderness - Respiratory Respiratory exam: Normal lung sounds bilaterally. negative: Respiratory distress - Cardiovascular Cardiovascular Exam: Regular rate, Normal rhythm, Normal heart sounds - GI/Abdominal GI/Abdominal exam: Soft, Normal bowel sounds. negative: Tenderness - Rectal Rectal exam: Deferred - exam: Deferred - Extremities Extremities exam: Normal inspection, Full ROM, Normal capillary refill, Tenderness (right hip pain) - Back Back exam: Reports: Normal inspection, Full ROM. Denies: Muscle spasm, Rash noted, Tenderness - Neurological Neurological exam: Alert, Normal gait, Oriented X3, Reflexes normal - Psychiatric Psychiatric exam: Normal affect, Normal mood - Skin Skin exam: Dry, Intact, Normal color, Warm H&P Results - Labs Result Diagrams: 07/27/18 06:00 07/27/18 06:00 Labs Last 24 Hours: Laboratory Results - last 24 hr 07/25/18 07/26/18 07/26/18 17:16 07:30 11:15 POC Glucose 145 H 149 H Urine Color Yellow Urine Appearance Clear Urine pH 5.5 Ur Specific Evans 1.020 Urine Protein Negative Urine Glucose (UA) Negative Urine Ketones Negative Urine Blood Negative Urine Nitrite Negative Urine Bilirubin Negative Urine Urobilinogen 0.2 Ur Leukocyte Esterase Negative Discharge Potential - Discharge Needs Community Services Used Prior to Admission: None Patient Discharge Plan Description: Return Home, Visiting Nurse Community Services Needed at Discharge: Home Health Nurse, Physical Therapy Discharge Needs Comment: Patient set up with [facility] [place] [facility] CM notified Aruna with [facility] that patient admitted and this company will be notified when patient discharges. Plan - Swing Bed Certification Initial Certification Due: 07/25/18 14 Day Re-Cert Due: 08/08/18 44 Day Re-Cert Due: 09/07/18 74 Day Re-Cert Due: 10/07/18 - Detailed Diagnosis and Plan (1) Encounter for rehabilitation Current Visit: Yes Status: Acute Base Code: Z51.89 - ENCOUNTER FOR OTHER SPECIFIED AFTERCARE Priority: High Comment: patient had right hip replacement on 07/22/2018 and here for rehab of the right hip. Swing bed (2) Diabetes mellitus Current Visit: Yes Status: Chronic Qualifiers: Diabetes mellitus type: type 2 Diabetes mellitus [facility] insulin use: without adjunct faculty for medical terminology use Diabetes mellitus complication status: without complication Qualified Code(s): E11.9 - Type 2 diabetes mellitus without complications Base Code: E11.9 - TYPE 2 DIABETES MELLITUS WITHOUT COMPLICATIONS Priority: Medium (3) Intermittent urinary incontinence Current Visit: Yes Status: Chronic Base Code: R32 - UNSPECIFIED URINARY INCONTINENCE Priority: Medium Comment: patient uses oxybutrin 10 mg at home for this problem and uses incontience pads (4) Hypothyroidism Current Visit: Yes Status: Chronic Base Code: E03.9 - HYPOTHYROIDISM, UNSPECIFIED Priority: Medium (5) Hypertension Current Visit: Yes Status: Chronic Qualifiers: Hypertension type: essential hypertension Qualified Code(s): I10 - Essential (primary) hypertension Base Code: I10 - ESSENTIAL (PRIMARY) HYPERTENSION Priority: Medium (6) Hypercholesteremia Current Visit: Yes Status: Chronic Base Code: E78.00 - PURE HYPERCHOLESTEROLEMIA, UNSPECIFIED Priority: Medium (7) GERD (gastroesophageal reflux disease) Current Visit: Yes Status: Chronic Base Code: K21.9 - GASTRO-ESOPHAGEAL REFLUX DISEASE WITHOUT ESOPHAGITIS Priority: Medium - Disposition plan rehab to be able to go home
[2018-07-26] MEDS: ENOXAPARIN 30 MG/0.3 ML SYR SQ SCH (15:00)
[2018-07-26] MEDS: HYDROCODONE/APAP 10/325 TABLET PO PRN ×2 (17:30→21:20)
[2018-07-26] MEDS: ATORVASTATIN 20 MG TABLET PO SCH (21:19)
[2018-07-27] MEDS: TRAMADOL HCL 50 MG TABLET PO PRN (00:20)
[2018-07-27] MEDS: HYDROCODONE/APAP 10/325 TABLET PO PRN ×2 (02:33→06:25)
[2018-07-27] MEDS: PANTOPRAZOLE SODIUM 40 MG TABLET PO SCH (06:19)
[2018-07-27] MEDS: LEVOTHYROXINE SODIUM 150 MCG TABLET PO SCH (06:19)
[2018-07-27 06:33] LABS: BASO % 0.4 % (0-6); EOS % 4.4 % (0-6); HEMATOCRIT 27.1 % (35.0-47.0); HEMOGLOBIN 8.2 gm/dl (11.6-16.0); LYMPH % 16.2 % (16-45); MEAN CELL VOLUME 92.8 fl (81-97); MEAN CORPUSCULAR HGB CONC 30.3 g/dl (32-36); MEAN PLATELET VOLUME 8.7 fl (7.4-10.4); PLATELET COUNT 284 K/uL (130-400); RED BLOOD COUNT 2.92 M/uL (3.80-5.40); RED CELL DISTRIBUTION WIDTH 15.6 % (11.5-14.5); WHITE BLOOD COUNT W/O DIFF 5.2 K/uL (4.2-12.2)
[2018-07-27 06:43] LABS: BLOOD UREA NITROGEN 25 mg/dL (8-23); CREATININE 0.9 mg/dL (0.5-0.9); EST GLOMERULAR FILTRATION RATE > 60 mL/min; GLUCOSE,RANDOM 121 mg/dL (74-109)
[2018-07-27] MEDS: FERROUS SULFATE 325 MG TAB PO SCH ×2 (08:01→17:30)
[2018-07-27] MEDS: METFORMIN 500 MG TABLET PO SCH ×2 (08:02→17:30)
--- NOTE | 2018-07-27 08:06 | Physician Progress Note ---
Subjective - Date Date of Progress Note: 07/27/18 - Admitting Diagnosis Diagnosis: right hip oa - Subjective Nursing Care Plan Problem List Activity Intolerance (Swing Bed) Start: 07/25/18 14: 11 Freq: Status: Active Protocol: Created 07/25/18 14:11 LESTER (Rec: 07/25/18 14:11 LESTER [id number]) Altered Peripheral Tissue Perfusion Start: 07/26/18 10: 57 Freq: Status: Active Protocol: Created 07/26/18 10:57 KMC (Rec: 07/26/18 10:57 KMC [id number]) Altered Thought Process (Fall Risk) Start: 07/25/18 20: 36 Freq: Status: Active Protocol: Created 07/25/18 20:36 LMS (Rec: 07/25/18 20:36 LMS [id number]) High Risk: Post-Op Complications Start: 07/26/18 10: 57 Freq: Status: Active Protocol: Created 07/26/18 10:57 KMC (Rec: 07/26/18 10:57 KMC [id number]) Impaired Mobility (Fall Risk) Start: 07/25/18 20: 36 Freq: Status: Active Protocol: Created 07/25/18 20:36 LMS (Rec: 07/25/18 20:36 LMS [id number]) Impaired Skin Integrity Start: 07/26/18 10: 57 Freq: Status: Active Protocol: Created 07/26/18 10:57 KMC (Rec: 07/26/18 10:57 KMC [id number]) Knowledge Deficit (Swing Bed) Start: 07/25/18 14: 11 Freq: Status: Active Protocol: Created 07/25/18 14:11 LESTER (Rec: 07/25/18 14:11 LESTER [id number]) Knowledge Deficit: Total Hip Replacement Start: 07/26/18 10: 57 Freq: Status: Active Protocol: Created 07/26/18 10:57 KMC (Rec: 07/26/18 10:57 KMC [id number]) Pain Start: 07/26/18 10: 57 Freq: Status: Active Protocol: Created 07/26/18 10:57 KMC (Rec: 07/26/18 10:57 KMC [id number]) Pain (Swing Bed) Start: 07/25/18 14: 11 Freq: Status: Active Protocol: Created 07/25/18 14:11 LESTER (Rec: 07/25/18 14:11 LESTER [id number]) Risk for Injury (Fall Risk) Start: 07/25/18 20: 36 Freq: Status: Active Protocol: Created 07/25/18 20:36 LMS (Rec: 07/25/18 20:36 LMS [id number]) Subjective: potassium slightly high 5.2 and her Bp is running low so will stop losartan to see if potassium normalized and will watch her BP and potassium and will recheck her hemoglobin in three days - Subjective Detail Constitutional: Reports: As per HPI General - Cognitive Patterns Speech: Normal Thought Process: Intact Thought Content: Normal - Communication Select best description of speech pattern: Clear Speech Ability to express ideas and wants: Understood Understanding verbal content: Understands - Mood and Behavior Patterns Appearance: Well Groomed Mood: Normal Attitude: Cooperative Motor Activity: Calm Affect: Appropriate Hallucinations: Denies - Physical Functioning Activity Level: Up with assist x1 Turning: With partial assist ROM Ability: Limited/Compromised Assistive Devices: 2 Wheel Walker Ambulation Ability: Independent Bed Mobility: Needs Assist Transfer Ability: Needs Assist Bathing Ability: Independent Personal Hygiene: Independent Dressing Ability: Needs Assist Eating (Feeding) Ability: Independent Toileting Ability: Needs Assist Administer Own Medication: Independent - Continence Bowel Pattern: Constipated Bladder Pattern: Frequency, Urgency, Incontinent Urinary Incontinence: Urge Meds/Allergies - Allergies Allergies Allergy/AdvReac Type Severity Reaction Status Date / Time No Known Drug Allergies Allergy Verified 10/10/17 21:20 - Active Medications Current Medications Hydrocodone Bitart/Acetaminophen ([place] 10mg/325mg) 1 each PO Q4H PRN PRN Reason: PAIN - MOD TO SEVERE (5-10) Last Admin: 07/27/18 06:25 Dose: 1 each Aspirin (Ecotrin (Ec)) 81 mg PO BID [facility] Last Admin: 07/26/18 21:18 Dose: 81 mg Atorvastatin Calcium (Lipitor) 10 mg PO QHS [facility] Last Admin: 07/26/18 21:19 Dose: 10 mg Celecoxib (Celebrex) 200 mg PO DAILY [facility] Last Admin: 07/26/18 10:15 Dose: 200 mg Citalopram Hydrobromide (Celexa) 20 mg PO DAILY [facility] Last Admin: 07/26/18 10:16 Dose: 20 mg Enoxaparin Sodium (Lovenox) 30 mg SQ DAILY [facility] Last Admin: 07/26/18 15:00 Dose: 30 mg Ferrous Sulfate (Iron) 325 mg PO BIDWM [facility] Last Admin: 07/26/18 17:30 Dose: 325 mg Levothyroxine Sodium (Synthroid) 150 mcg PO DAILYTHY [facility] Last Admin: 07/27/18 06:19 Dose: 150 mcg Losartan Potassium (Cozaar) 25 mg PO DAILY [facility] Last Admin: 07/26/18 10:16 Dose: 25 mg Magnesium Hydroxide (Milk Of Magnesium) 30 ml PO ONCE PRN PRN Reason: CONSTIPATION Last Admin: 07/26/18 10:15 Dose: 30 ml Metformin HCl (Glucophage Ir) 1,000 mg PO BIDWM [facility] Last Admin: 07/26/18 17:30 Dose: 1,000 mg Metoprolol Succinate (Toprol Xl) 25 mg PO DAILY [facility] Last Admin: 07/26/18 10:15 Dose: 25 mg Oxybutynin Chloride (Ditropan) 10 mg PO DAILY [facility] Last Admin: 07/26/18 10:16 Dose: 10 mg Pantoprazole Sodium (Protonix) 40 mg PO DAILYAC [facility] Last Admin: 07/27/18 06:19 Dose: 40 mg Pioglitazone HCl (Actos) 45 mg PO DAILY [facility] Last Admin: 07/26/18 10:16 Dose: 45 mg Senna/Docusate Sodium (Senna Plus) 2 each PO BID [facility] Last Admin: 07/26/18 21:18 Dose: 2 each Tramadol HCl (Ultram) 100 mg PO Q4H PRN PRN Reason: PAIN - MILD TO MODERATE (1-7) Tramadol HCl (Ultram) 50 mg PO Q4H PRN PRN Reason: PAIN - MILD TO MODERATE (1-7) Last Admin: 07/27/18 00:20 Dose: 50 mg Objective - Vital Signs Vital Signs: Vital Signs - Last 24 Hrs Temp Pulse Resp BP Pulse Ox 07/26/18 20:00 98.0 F 77 16 103/53 98 - General General Appearance: Alert, Oriented x3, Cooperative, No acute distress - Head Head exam: Normal inspection - Eye Eye exam: Normal appearance, PERRL Pupils: Normal accommodation - ENT ENT exam: Normal exam, Mucous membranes moist, Normal external ear exam, Normal orophraynx, TM's normal bilaterally Ear exam: Normal external inspection. negative: External canal tenderness Nasal Exam: Normal inspection. negative: Discharge, Sinus tenderness Mouth exam: Normal external inspection, Tongue normal Teeth exam: Normal inspection. negative: Dental caries Throat exam: Normal inspection. negative: Tonsillar erythema, Tonsillar exudate - Neck Neck exam: Normal inspection, Full ROM. negative: Tenderness - Respiratory Respiratory exam: Normal lung sounds bilaterally. negative: Respiratory distress - Cardiovascular Cardiovascular Exam: Regular rate, Normal rhythm, Normal heart sounds - GI/Abdominal GI/Abdominal exam: Soft, Normal bowel sounds. negative: Tenderness - Rectal Rectal exam: Deferred - exam: Deferred - Extremities Extremities exam: Normal inspection, Full ROM, Normal capillary refill, Tenderness (right hip pain) - Back Back exam: Reports: Normal inspection, Full ROM. Denies: Muscle spasm, Rash noted, Tenderness - Neurological Neurological exam: Alert, Normal gait, Oriented X3, Reflexes normal - Psychiatric Psychiatric exam: Normal affect, Normal mood - Skin Skin exam: Dry, Intact, Normal color, Warm H&P Results - Labs Result Diagrams: 07/27/18 06:28 07/27/18 06:28 Labs Last 24 Hours: Laboratory Results - last 24 hr 07/26/18 07/26/18 07/26/18 07:30 11:15 17:29 WBC RBC Hgb Hct MCV MCH MCHC RDW Plt Count MPV Gran % Lymphocytes % Monocytes % Eosinophils % Basophils % Sodium Potassium Chloride Carbon Dioxide Anion Gap BUN Creatinine Estimated GFR POC Glucose 149 H 173 H Random Glucose Calcium Urine Color Yellow Urine Appearance Clear Urine pH 5.5 Ur Specific [place] 1.020 Urine Protein Negative Urine Glucose (UA) Negative Urine Ketones Negative Urine Blood Negative Urine Nitrite Negative Urine Bilirubin Negative Urine Urobilinogen 0.2 Ur Leukocyte Esterase Negative 07/27/18 07/27/18 06:28 06:28 WBC 5.2 RBC 2.92 L Hgb 8.2 L Hct 27.1 L MCV 92.8 MCH 28.0 MCHC 30.3 L RDW 15.6 H Plt Count 284 MPV 8.7 Gran % 68.0 Lymphocytes % 16.2 Monocytes % 11.0 H Eosinophils % 4.4 Basophils % 0.4 Sodium 133 L Potassium 5.2 H Chloride 96 L Carbon Dioxide 26.0 Anion Gap 11.0 BUN 25 H Creatinine 0.9 Estimated GFR > 60 POC Glucose Random Glucose 121 H Calcium 8.9 Urine Color Urine Appearance Urine pH Ur Specific [place] Urine Protein Urine Glucose (UA) Urine Ketones Urine Blood Urine Nitrite Urine Bilirubin Urine Urobilinogen Ur Leukocyte Esterase Discharge Potential - Discharge Needs Community Services Used Prior to Admission: None Patient Discharge Plan Description: Return Home, Visiting Nurse Community Services Needed at Discharge: Home Health Nurse, Physical Therapy Discharge Needs Comment: Patient set up with [facility] [place] [facility] CM notified Aruna with [facility] that patient admitted and this company will be notified when patient discharges. Plan - Swing Bed Certification Initial Certification Due: 07/25/18 14 Day Re-Cert Due: 08/08/18 44 Day Re-Cert Due: 09/07/18 74 Day Re-Cert Due: 10/07/18 - Detailed Diagnosis and Plan (1) Encounter for rehabilitation Current Visit: Yes Status: Acute Base Code: Z51.89 - ENCOUNTER FOR OTHER SPECIFIED AFTERCARE Priority: High Comment: patient had right hip replacement on 07/22/2018 and here for rehab of the right hip. Swing bed (2) Diabetes mellitus Current Visit: Yes Status: Chronic Qualifiers: Diabetes mellitus type: type 2 Diabetes mellitus fdc insulin use: without computer terminal operator use Diabetes mellitus complication status: without complication Qualified Code(s): E11.9 - Type 2 diabetes mellitus without complications Base Code: E11.9 - TYPE 2 DIABETES MELLITUS WITHOUT COMPLICATIONS Priority: Medium (3) Intermittent urinary incontinence Current Visit: Yes Status: Chronic Base Code: R32 - UNSPECIFIED URINARY INCONTINENCE Priority: Medium Comment: patient uses oxybutrin 10 mg at home for this problem and uses incontience pads (4) Hypothyroidism Current Visit: Yes Status: Chronic Base Code: E03.9 - HYPOTHYROIDISM, UNSPECIFIED Priority: Medium (5) Hypertension Current Visit: Yes Status: Chronic Qualifiers: Hypertension type: essential hypertension Qualified Code(s): I10 - Essential (primary) hypertension Base Code: I10 - ESSENTIAL (PRIMARY) HYPERTENSION Priority: Medium (6) Hypercholesteremia Current Visit: Yes Status: Chronic Base Code: E78.00 - PURE HYPERCHOLESTEROLEMIA, UNSPECIFIED Priority: Medium (7) GERD (gastroesophageal reflux disease) Current Visit: Yes Status: Chronic Base Code: K21.9 - GASTRO-ESOPHAGEAL REFLUX DISEASE WITHOUT ESOPHAGITIS Priority: Medium (8) Hyperkalemia Current Visit: Yes Status: Acute Base Code: E87.5 - HYPERKALEMIA Comment: potassium slightly high 5.2 and her BP is running low 105/52 and will stop losartan to see if potassium normalizes and will watch her BP (9) Anemia Current Visit: Yes Status: Acute Qualifiers: Anemia type: other cause Base Code: D64.9 - ANEMIA, UNSPECIFIED Comment: patient hg is 8.2(07/27/2018) and she had a hip repacement on 07/22/2018 will watch. She is on iron therapy from [facility] - Disposition plan rehab to be able to go home
[2018-07-27] MEDS: SENNOSIDES/DOCUSATE SODIUM UD CAPSULE PO SCH ×2 (09:54→22:13)
[2018-07-27] MEDS: ENOXAPARIN 30 MG/0.3 ML SYR SQ SCH (09:54)
[2018-07-27] MEDS: CELECOXIB 100 MG CAPSULE PO SCH (09:54)
[2018-07-27] MEDS: CITALOPRAM 20 MG TABLET PO SCH (09:54)
[2018-07-27] MEDS: PIOGLITAZONE HCL 15 MG TABLET PO SCH (09:55)
[2018-07-27] MEDS: OXYBUTYNIN CHLORIDE 5MG TABLET PO SCH (09:55)
[2018-07-27] MEDS: METOPROLOL SUCC 25 MG TAB.ER PO SCH (09:56)
[2018-07-27] MEDS: ASPIRIN 81 MG TABEC PO SCH ×2 (09:56→22:13)
[2018-07-27] MEDS: ATORVASTATIN 20 MG TABLET PO SCH (22:13)
[2018-07-28] MEDS: HYDROCODONE/APAP 10/325 TABLET PO PRN ×4 (03:04→21:18)
[2018-07-28] MEDS: LEVOTHYROXINE SODIUM 150 MCG TABLET PO SCH (06:35)
[2018-07-28] MEDS: PANTOPRAZOLE SODIUM 40 MG TABLET PO SCH (06:36)
[2018-07-28] MEDS: METFORMIN 500 MG TABLET PO SCH ×2 (08:11→17:47)
[2018-07-28] MEDS: FERROUS SULFATE 325 MG TAB PO SCH ×2 (08:11→17:47)
[2018-07-28] MEDS: MAGNESIUM HYDROXIDE 30 ML UDC PO PRN (08:21)
--- NOTE | 2018-07-28 08:39 | Rehab Evaluation ---
Patient Information - Patient Information Diagnosis: R Hip OA Ordered Treatment: PT Evaluate and Treat Status: Initial Evaluation Surgery: Yes (R HARMAN) Date of Surgery: 07/22/18 Past Medical/Surgical Hx: PAST MEDICAL/SURGICAL HISTORY Past Surgical History Bilateral Shoulder Left Hip Replacement Right Knee Replacement Bilateral Mastectomy Cholecystectomy Appendectomy Appendectomy Hysterectomy PMH - Respiratory Hx Respiratory Disorders Yes Hx Asthma No Hx Bronchitis No Hx Chronic Obstructive No Pulmonary Disease (COPD) Hx Dyspnea No Hx Pneumonia No Hx Pulmonary Embolism No Hx Sleep Apnea Yes Hx Tuberculosis No Hx of CPAP Yes: Pt does not use. PMH - Cardiovascular Hx Cardiovascular Disorders Yes Hx Abnormal EKG No Hx Cardiac Catheterization No Hx Chest Pain No Hx Congestive Heart Failure No Hx Deep Vein Thrombosis No Hx Edema No Hx Heart Attack No Hx Hypertension Yes Hx Hypotension No Hx Irregular Heartbeat Yes: afib Hx Palpitations No Hx Pacemaker/Defibrillator No Hx Vascular Disease No PMH - Neuro Hx Neurological Disorders No PMH - GI Hx Gastrointestinal Disorders No Hx Abdominal Pain No Hx Celiac Disease No Hx Crohn's Disease No Hx Diverticulitis No Hx Gastrointestinal Bleed No Hx Gastroesophageal Reflux Yes Hx Hepatitis/Jaundice No Hx Hiatal Hernia Yes Hx Irritable Bowel No Hx Liver Disease No Hx Nausea/Vomiting No Hx Obstructive Bowel No Hx Pancreatitis No Hx Rectal Bleeding No Hx Ulcer Yes: within the last couple years/Dr. Del Rosario PMH - Hx Genitourinary Disorders No Hx Bladder Problem No Hx Dialysis No Hx Kidney Stones No Hx Renal Disease No Hx Urinary Tract Infection Yes: Pt completed Cipro for UTI before this surgery. Comment: Hysterectomy, urinary incontinence PMH - Endocrine Hx Endocrine Disorders Yes Hx Diabetes Yes: DM2 Hx Thyroid Disease Yes: Hypo PMH - Musculoskeletal Hx Musculoskeletal Disorders Yes Hx Arthritis Yes Hx Back Injury No Hx Fibromyalgia No Hx Gout No Hx Musculoskeletal Disease No Hx Osteoporosis No PMH - Psych Hx Psychiatric Problems Yes Hx Anxiety Yes Hx Behavior Problems No Hx Depression Yes Hx Emotional Abuse No Hx Sexual Abuse No Hx Suicide Attempt No Major Depressive Episode No Feelings of Hopelessness No PMH - Hematology/Oncology Hx Hematology/Oncology Yes Disorders Hx Anemia Yes: takes iron 325mg bid Hx Blood Disorders No Hx Bruising No Hx Cancer Yes: Breast Hx Chemotherapy Yes Hx Radiation Therapy No Hx Clotting Problems No Hx Sickle Cell Disease No Hx Unexplained Bleeding No Hx Blood Transfusion Reaction No Premorbid Status: Detail (Pt reports ambulating with either her 2WW or 4WW CAN STRIPER. Pt was sitting on extended tub bench to complete showering. She was able to shower from seated position IND and dress IND CAN STRIPER using thread separator and sock aid.) Social History: Detail (Pt lives with spouse in a 2-story house with basement. She primarily lives on first floor but states that on the rare occassion she had to go upstairs, she did so on hands and knees. Pt mostly uses garage entrance which has 2 steps to enter. Alternate entry has 3 steps up onto deck, then once on deck there is one more step to enter house. Pt has grab bars throughout home including in bathroom. She has an elevated toilet seat, extended tub bench, hand held shower head, curtain enclosure around shower, thread separator, sock aid, 2WW and 4WW.) Precautions: [place], Fall, Other (hip precautions) - Time With Patient Total Time Spent With Patient (Min): 30 Treatment Procedures: Detail (Initial evaluation, gait training, exercise education.) Subjective Information - Subjective Information Per Patient (Patient was lying supine upon arrival. Patient reported 8/10 R hip pain.) Objective Data - Pain Pain Present: Yes Pain Intensity: 8 Pain Scale Used: Numeric (1 - 10) - Mental Status Patient Orientation: Oriented x3 - Visual Perception Appears within normal limits for therapeutic activities - ROM Not within normal limits (R hip ROM limited due to status post-surgery.) - Strength/Tone Not within normal limits (L LE: hip flex 4-/5, ABD 4/5, ADD 4/5, knee flex 4/5, knee ext 4/5, ankle PF/DF 4+/5. R hip strength limited due to status post surgery.) - Bed Mobility Independent (Patient was IND with supine to and from sit transfer.) - Transfers Independent (Patient was IND with sit to stand transfers with SBA for safety. Patient required cueing for hand placement.) - Balance Balance Sitting: Good Balance Standing: Fair (Patient reports a history of multiple falls.) - Sensation Intact - Gait Detail (Patient ambulated approx. 250' using a front wheeled walker and SBA for safety. WBAT on R LE.) Therapy Assessment - Therapy Assessment Detail (Patient tolerated exercises, and activity well. Patient had mild swelling of her R LE, so compression stockings were put back on. Feel patient will progress well with mobility with continued PT.) Patient Education - Patient Education Teaching Topic: Exercise/Activity (1x10 Heel to toe raises, glut sets, quad sets , LAQ, hip marches (left LE only), heel slides, SLR, hip ABD, hip ADD squeeze.) Response: Return Demonstration Teaching Method: Demonstration, Handout Teaching Recipient: Patient Barriers To Learning: Age Related Problem List - Problem List Physical Therapy Problem List: Detail (1) Swelling of R LE 2) Pain in R hip 3) Limited R hip ROM 4) Limited strength B LE) Occupational Therapy Problem List: Detail (1. Decreased endurance to complete ADLs 2. Decreased independence and safety with ADLs 3. BUE weakness) Goals - Goals Physical Therapy Goals: 1) Patient will ambulate a flight of 3 stairs with a folded walker, hand rail, and supervision for safety. 2) Patient will improve MMT grade by 1/3 in all initially weak musculature to aid in functional strength during activities such as walking. 3) Patient will report 0-3 pain level during exercise to help improve tolerance to physical activity. Occupational Therapy Goals: 1. Pt to be independent with UB and LB drsg using ADL equipment. 2. Pt to be independent with showering using AD. 3. Increase edurance to complete ADLs. 4. Pt able to ambulate household distances safely and IND using 2WW Prognosis - Prognosis Good Plan - Plan Physical Therapy Plan: Patient will be seen 1-2/day M-F to work on gait/stair training, and LE strengthening exercise. Occupational Therapy Plan: Pt to be treated by OT 2-4 times a week M-F to address limitations with ADL independence and safety, decreased endurance to complete ADLs, and BUE weakness.
[2018-07-28] MEDS: CELECOXIB 100 MG CAPSULE PO SCH (09:35)
[2018-07-28] MEDS: PIOGLITAZONE HCL 15 MG TABLET PO SCH (09:35)
[2018-07-28] MEDS: ENOXAPARIN 30 MG/0.3 ML SYR SQ SCH (09:36)
[2018-07-28] MEDS: TOVIAZ 8 MG PO SCH (09:36)
[2018-07-28] MEDS: ASPIRIN 81 MG TABEC PO SCH ×2 (09:36→21:21)
[2018-07-28] MEDS: CITALOPRAM 20 MG TABLET PO SCH (09:36)
[2018-07-28] MEDS: SENNOSIDES/DOCUSATE SODIUM UD CAPSULE PO SCH ×2 (09:37→21:19)
[2018-07-28] MEDS: METOPROLOL SUCC 25 MG TAB.ER PO SCH (09:37)
--- NOTE | 2018-07-28 14:07 | Occupational Therapy Tx Note ---
Occupational Therapy Tx Note - Treatment Note Tolerated: Good Total Time Spent With Patient: 30 (ADL) Occupational Therapy Treatment Note: Detail (S: Pt up at EOB, just walked with nursing. O: Reviewed total hip precautions, pt verbalized learning. Pt reports she has a textile conservator, sock aid and long shoe horn at home. Reviewed modified LE dressing techniques and pt able to use equipment to doff slipper socks, don shorts and don tie tennis shoes with verbal cues and with shoes untied. Pt reports she usually wears slip on shoes at home. Pt doffed tennis shoes Indly. Sit to supine Indly and left supine. A: Ind with LE dressing using adaptive equipment.) Occupational Therapy Problem List: Detail (1. Decreased endurance to complete ADLs 2. Decreased independence and safety with ADLs 3. BUE weakness) Occupational Therapy Goals: 1. Pt to be independent with UB and LB drsg using ADL equipment. 2. Pt to be independent with showering using AD. 3. Increase edurance to complete ADLs. 4. Pt able to ambulate household distances safely and IND using 2WW Prognosis: Good Occupational Therapy Plan: Pt to be treated by OT 2-4 times a week M-F to address limitations with ADL independence and safety, decreased endurance to complete ADLs, and BUE weakness.
[2018-07-28] MEDS: ATORVASTATIN 20 MG TABLET PO SCH (21:21)
[2018-07-29] MEDS: LEVOTHYROXINE SODIUM 150 MCG TABLET PO SCH (06:03)
[2018-07-29] MEDS: HYDROCODONE/APAP 10/325 TABLET PO PRN ×3 (06:03→19:59)
[2018-07-29] MEDS: PANTOPRAZOLE SODIUM 40 MG TABLET PO SCH (06:04)
[2018-07-29 06:47] LABS: HEMATOCRIT 24.1 % (35.0-47.0); HEMOGLOBIN 7.2 gm/dl (11.6-16.0); MEAN CELL VOLUME 94.1 fl (81-97); MEAN CORPUSCULAR HEMOGLOBIN 28.1 pg (27-33); MEAN CORPUSCULAR HGB CONC 29.9 g/dl (32-36); MEAN PLATELET VOLUME 8.7 fl (7.4-10.4); PLATELET COUNT 292 K/uL (130-400); RED BLOOD COUNT 2.56 M/uL (3.80-5.40); RED CELL DISTRIBUTION WIDTH 15.5 % (11.5-14.5); WHITE BLOOD COUNT W/O DIFF 4.9 K/uL (4.2-12.2)
[2018-07-29 07:00] LABS: BLOOD UREA NITROGEN 17 mg/dL (8-23); CREATININE 0.8 mg/dL (0.5-0.9); EST GLOMERULAR FILTRATION RATE > 60 mL/min; GLUCOSE,RANDOM 119 mg/dL (74-109)
[2018-07-29] MEDS: FERROUS SULFATE 325 MG TAB PO SCH ×2 (08:12→17:43)
[2018-07-29] MEDS: METFORMIN 500 MG TABLET PO SCH ×2 (08:12→17:41)
[2018-07-29] MEDS: CELECOXIB 100 MG CAPSULE PO SCH (09:16)
[2018-07-29] MEDS: PIOGLITAZONE HCL 15 MG TABLET PO SCH (09:16)
[2018-07-29] MEDS: ENOXAPARIN 30 MG/0.3 ML SYR SQ SCH (09:17)
[2018-07-29] MEDS: CITALOPRAM 20 MG TABLET PO SCH (09:17)
[2018-07-29] MEDS: ASPIRIN 81 MG TABEC PO SCH ×2 (09:17→22:13)
[2018-07-29] MEDS: TOVIAZ 8 MG PO SCH (09:18)
[2018-07-29] MEDS: METOPROLOL SUCC 25 MG TAB.ER PO SCH (09:18)
[2018-07-29] MEDS: SENNOSIDES/DOCUSATE SODIUM UD CAPSULE PO SCH ×2 (09:18→22:15)
[2018-07-29] MEDS: ASCORBIC ACID 500 MG TAB PO SCH ×2 (09:19→22:11)
--- NOTE | 2018-07-29 14:14 | Physical Therapy Tx Note ---
Physical Therapy Tx Note - Treatment Note Tolerated: Good Total Time Spent With Patient: 30 Physical Therapy Tx Note: Detail (Patient reports 7/10 R hip pain. Patient ambulated approx. 250' using a front wheeled walker and supervision for safety. Patient also ambulated a flight of 3 stairs using a folded walker, hand rail, and SBA for safety. Patient has some difficulty following commands and required verbal cues for stair technique. Patient performed 1x10 BLE ankle pumps, heel slides, glut sets, quad sets, hamstring sets, and hip ABD. Patient was left lying supine in bed with call light in reach.) Physical Therapy Problem List: Detail (1) Swelling of R LE 2) Pain in R hip 3) Limited R hip ROM 4) Limited strength B LE) Physical Therapy Goals: 1) Patient will ambulate a flight of 3 stairs with a folded walker, hand rail, and supervision for safety. (Goal Met). 2) Patient will improve MMT grade by 1/3 in all initially weak musculature to aid in functional strength during activities such as walking. 3) Patient will report 0 -3 pain level during exercise to help improve tolerance to physical activity. Prognosis: Good Physical Therapy Plan: Patient will be seen 1-2/day M-F to work on gait/stair training, and LE strengthening exercise.
--- NOTE | 2018-07-29 14:21 | Occupational Therapy Tx Note ---
Occupational Therapy Tx Note - Treatment Note Tolerated: Good Total Time Spent With Patient: 50 (ther ex) Occupational Therapy Treatment Note: Detail (S: Pt supine, resting in bed. O: Supine to sit Indly. Sit to stand and amb to rehab area, approx. 500 feet with 2 wheeled walker Indly. Pt completed nic UE exercises including yellow theraband for elbow flexion, elbow extension, shoulder flexion, shoulder extension, scapular retraction x 10 reps each, PROM to right shoulder in sitting , supine shoulder flexion x 10 reps AROM and x 10 reps with 1# wrist weights, shoulder ladder for right shoulder flexion x 3 reps. Pt amb 500 feet to room with 2 wheeled walker. A: Pt reports shoulder felt better after exercises. Ambulating well in hallway.) Occupational Therapy Problem List: Detail (1. Decreased endurance to complete ADLs 2. Decreased independence and safety with ADLs 3. BUE weakness) Occupational Therapy Goals: 1. Pt to be independent with UB and LB drsg using ADL equipment. 2. Pt to be independent with showering using AD. 3. Increase edurance to complete ADLs. 4. Pt able to ambulate household distances safely and IND using 2WW Prognosis: Good Occupational Therapy Plan: Pt to be treated by OT 2-4 times a week M-F to address limitations with ADL independence and safety, decreased endurance to complete ADLs, and BUE weakness.
[2018-07-29] MEDS: ATORVASTATIN 20 MG TABLET PO SCH (22:11)
[2018-07-29] MEDS: CALCIUM CARBONATE 500 MG TAB.CHEW PO PRN (23:37)
[2018-07-30] MEDS: HYDROCODONE/APAP 10/325 TABLET PO PRN ×4 (01:51→21:44)
[2018-07-30] MEDS: LEVOTHYROXINE SODIUM 150 MCG TABLET PO SCH (06:09)
[2018-07-30] MEDS: PANTOPRAZOLE SODIUM 40 MG TABLET PO SCH (06:09)
[2018-07-30] MEDS: ASPIRIN 81 MG TABEC PO SCH ×3 (08:41→21:39)
[2018-07-30] MEDS: METOPROLOL SUCC 25 MG TAB.ER PO SCH ×2 (08:41→09:15)
[2018-07-30] MEDS: PIOGLITAZONE HCL 15 MG TABLET PO SCH ×2 (08:41→09:15)
[2018-07-30] MEDS: METFORMIN 500 MG TABLET PO SCH ×2 (08:41→16:44)
[2018-07-30] MEDS: SENNOSIDES/DOCUSATE SODIUM UD CAPSULE PO SCH ×3 (08:41→21:37)
[2018-07-30] MEDS: CELECOXIB 100 MG CAPSULE PO SCH ×2 (08:41→09:15)
[2018-07-30] MEDS: CITALOPRAM 20 MG TABLET PO SCH ×2 (08:41→09:15)
[2018-07-30] MEDS: FERROUS SULFATE 325 MG TAB PO SCH ×2 (08:42→16:44)
[2018-07-30] MEDS: ASCORBIC ACID 500 MG TAB PO SCH ×3 (08:42→21:37)
[2018-07-30] MEDS: TOVIAZ 8 MG PO SCH ×2 (08:46→09:15)
--- NOTE | 2018-07-30 09:38 | Physical Therapy Tx Note ---
Physical Therapy Tx Note - Treatment Note Tolerated: Good Total Time Spent With Patient: 15 Physical Therapy Tx Note: Detail (Patient was lying supine in bed upon arrival with complaints of R LE swelling. Patient ambulated 50' using a front wheeled walker with supervision for safety. The patient also ambulated a flight of 3 stairs using a cane, hand rail and supervision for safety. Patient was left lying supine in bed with call light in reach.) Physical Therapy Problem List: Detail (1) Swelling of R LE 2) Pain in R hip 3) Limited R hip ROM 4) Limited strength B LE) Physical Therapy Goals: 1) Patient will ambulate a flight of 3 stairs with a folded walker, hand rail, and supervision for safety. (Goal Met). 2) Patient will improve MMT grade by 1/3 in all initially weak musculature to aid in functional strength during activities such as walking. 3) Patient will report 0 -3 pain level during exercise to help improve tolerance to physical activity. Prognosis: Good Physical Therapy Plan: Patient will be seen 1-2/day M-F to work on gait/stair training, and LE strengthening exercise.
--- NOTE | 2018-07-30 10:52 | Occupational Therapy Tx Note ---
Occupational Therapy Tx Note - Treatment Note Tolerated: Good Total Time Spent With Patient: 45 (ADL) Occupational Therapy Treatment Note: Detail (S: Pt resting in bed. Reports increased right LE swelling today. O: Supine to sit Indly. Sit to stand and amb to commode with 2 wheeled walker Indly, completed toileting Indly. Pt doffed shirt, PJ bottoms, briefs and slipper socks with laydown machine operator and verbal cues to maintain hip precautions. Pt amb to shower and completed total body showering sitting on commode Indly. Pt able to dry self Indly, don shirt, briefs and PJ bottoms Indly using laydown machine operator. Slipper socks donned per OT as pt did not have sock aid available. She reports she is Ind with using all equipment and spouse will assist if needed. Pt amb to sink and completed partial grooming Indly. Amb back to bed with 2 wheeled walker and sit to supine Indly. A: Pt is Ind with dressing and showering using adaptive equipment.) Occupational Therapy Problem List: Detail (1. Decreased endurance to complete ADLs 2. Decreased independence and safety with ADLs 3. BUE weakness) Occupational Therapy Goals: 1. Pt to be independent with UB and LB drsg using ADL equipment. 2. Pt to be independent with showering using AD. 3. Increase edurance to complete ADLs. 4. Pt able to ambulate household distances safely and IND using 2WW Prognosis: Good Occupational Therapy Plan: Pt to be treated by OT 2-4 times a week M-F to address limitations with ADL independence and safety, decreased endurance to complete ADLs, and BUE weakness.
[2018-07-30 17:20] LABS: HEMATOCRIT 24.8 % (35.0-47.0); HEMOGLOBIN 7.3 gm/dl (11.6-16.0)
[2018-07-30] MEDS: CALCIUM CARBONATE 500 MG TAB.CHEW PO PRN (20:02)
[2018-07-30] MEDS: ATORVASTATIN 20 MG TABLET PO SCH (21:38)
[2018-07-31] MEDS: LEVOTHYROXINE SODIUM 150 MCG TABLET PO SCH (06:09)
[2018-07-31] MEDS: PANTOPRAZOLE SODIUM 40 MG TABLET PO SCH (06:09)
[2018-07-31] MEDS: HYDROCODONE/APAP 10/325 TABLET PO PRN ×2 (06:23→10:31)
--- NOTE | 2018-07-31 07:39 | US VENOUS DOPPLER REPORT ---
EXAM: VENOUS DOPPLER ULTRASOUND OF THE RIGHT LOWER EXTREMITY HISTORY: SWELLING. TECHNIQUE: Sonographic evaluation of the deep venous system of the right lower extremity was performed with the addition of Doppler, compression and augmentation. FINDINGS: There is normal blood flow, compression and augmentation identified in the deep venous system of the right lower extremity. Negative for deep vein thrombosis. IMPRESSION: NEGATIVE FOR DEEP VEIN THROMBOSIS IN THE RIGHT LOWER EXTREMITY. JOB NUMBER: [id number] MTDD
[2018-07-31] MEDS: FERROUS SULFATE 325 MG TAB PO SCH (07:45)
[2018-07-31] MEDS: METFORMIN 500 MG TABLET PO SCH (07:45)
[2018-07-31] MEDS: MAGNESIUM HYDROXIDE 30 ML UDC PO PRN (07:59)
--- NOTE | 2018-07-31 09:56 | Discharge Summary ---
Providers Discharge Summary Date: 07/31/18 Date of admission: 07/25/18 12:22 Expected Date of Discharge: 07/31/18 Attending physician: Andrei Thomas Primary care physician: RAÚL SALGUERO D.O. Consults: Consult Orders 07/28/18 08:42 Consult NOW Consulting Provider: PAULETTE GLASER Physician Instructions: Reason For Exam: frequent urination Physical Exam - Vital Signs Vital Signs: Vital Signs - Last 24 Hrs Temp Pulse Resp BP Pulse Ox 07/31/18 08:00 98.8 F 70 16 116/79 97 07/30/18 20:00 97 F L 75 18 105/57 98 - General General Appearance: Alert, Oriented x3, Cooperative, No acute distress - Head Head exam: Normal inspection - Eye Eye exam: Normal appearance, PERRL Pupils: Normal accommodation - ENT ENT exam: Normal exam, Mucous membranes moist, Normal external ear exam, Normal orophraynx Ear exam: Normal external inspection. negative: External canal tenderness Nasal Exam: Normal inspection. negative: Discharge, Sinus tenderness Mouth exam: Normal external inspection, Tongue normal Teeth exam: Normal inspection. negative: Dental caries Throat exam: Normal inspection. negative: Tonsillar erythema, Tonsillar exudate - Neck Neck exam: Normal inspection, Full ROM. negative: Tenderness - Respiratory Respiratory exam: Normal lung sounds bilaterally. negative: Respiratory distress - Cardiovascular Cardiovascular Exam: Regular rate, Normal rhythm, Normal heart sounds Peripheral Pulses: 2+: Radial (R), Radial (L) - GI/Abdominal GI/Abdominal exam: Soft, Normal bowel sounds. negative: Tenderness - Rectal Rectal exam: Deferred - exam: Deferred - Extremities Extremities exam: Normal inspection, Full ROM, Normal capillary refill, Tenderness (right hip pain), Other (right lower extremity edema, 2+ pitting) - Back Back exam: Reports: Normal inspection, Full ROM. Denies: Muscle spasm, Rash noted, Tenderness - Neurological Neurological exam: Alert, Normal gait, Oriented X3 - Psychiatric Psychiatric exam: Normal affect, Normal mood - Skin Skin exam: Dry, Intact, Normal color, Warm Hospitalization - Hospitalization Admission Diagnosis: right hip oa - Problem List (1) Encounter for rehabilitation Current Visit: Yes Status: Acute Base Code: Z51.89 - ENCOUNTER FOR OTHER SPECIFIED AFTERCARE Comment: 07/31/18: patient had right hip replacement on 09/2018 at [facility]. No complications post-op. Here for rehab via Swingbed status -Has been participating in PT/OT while here -Plan to start outpatient PT on Saturday at [facility] (2) Status post right hip replacement Current Visit: Yes Status: Acute Base Code: Z96.641 - PRESENCE OF RIGHT ARTIFICIAL HIP JOINT Comment: 07/31/18: right hip replacement 07/22/18 at [facility]. No complications post-op. -Continues to have some mild right lower extremity swelling. Venous duplex negative for DVT. Patient encouraged to wear compression stockings for support -Ultram and Broadway controlling pain (3) Anemia Current Visit: Yes Status: Acute Discharge Diagnosis: Anemia type: other cause Base Code: D64.9 - ANEMIA, UNSPECIFIED Comment: 07/31/18: Patient has a history of chronic anemia, for which she takes iron supplementation BID at home. -Hgb 8.2 on 07/27, followed by 7.2 on 07/28, and 7.3 on 07/30. Remaining stable, likely dropped due to surgery. Will continue on BID iron dosing -Patient denies dizziness, shortness of breath, chest pain, or fatigue. (4) Intermittent urinary incontinence Current Visit: Yes Status: Chronic Base Code: R32 - UNSPECIFIED URINARY INCONTINENCE Comment: 07/31/18: Patient uses oxybutrin 10 mg at home for this problem and uses incontience pads. Patient has had increased problems with incontinence and urgency since admission. Has tried Toviaz with mild relief -UA negative during admission -Patient had consult with Dr. Glaser (Urology) on 07/29/18 who added on Noctiva. Patient to follow-up with Dr. Glaser as needed after discharge (5) DVT prophylaxis Current Visit: Yes Status: Acute Base Code: [id number] - Comment: 07/31/18: Moderate risk due to surgery, hospitalization, age, and decreased mobility -Lovenox 40mg SQ while admitted -No need to continue therapy upon discharge as patient will increase activity at home (6) Full code status Current Visit: Yes Status: Acute Base Code: Z78.9 - OTHER SPECIFIED HEALTH STATUS Comment: 07/31/18: Patient is full code status this admission - Hospitalization Course Disposition: Home, Self-Care Hospital Course: patient admitted to swing bed for rehab of the right hip replacement done at [facility] by Dr. Aj on 07/22/2018. Primary dr. is dr Salguero. Currently using asa 81 mg BID for DVT prophylaxis and she is having trouble with constipation. 07/31/18: Patient A&O x 4, resting comfortably in bed. Patient has participated in PT/OT services while swing bed status, ready for discharge today. While admitted patient has had some anemia. Have been monitoring hemoglobin and hematocrit, low but remaining stable at this time. Patient encouraged to resume daily BID iron dosing at home. Patient also complains of right lower extremity edema and pain, worsening with prolonged activity. Right lower extremity duplex negative for DVT, encouraged patient to wear compression stockings and elevate leg when able. Pain has been well controlled with Broadway and Ultram. Patient has also had some intermittent constipation while admitted , controlled with mild stool softener and laxative therapy. Patient has a history of chronic urinary incontinence, controlled with oxybutinin and requiring disposable briefs at home. Patient had worsening symptoms while admitted, Toviaz trialed with some relief. Patient also saw Dr. Glaser who started Noctiva. Patient is discharging home with and setup to start outpatient PT at [facility] next week. Procedures: Imaging and X-Rays 07/30/18 12:09 VENOUS DOPPLER LOWER EXT RT [US] Stat Abnormal Labs: Abnormal Lab Results 07/25/18 07/26/18 07/26/18 Range/Units 17:16 07:30 17:29 RBC (3.80-5.40) M/uL Hgb (11.6-16.0) gm/dl Hct (35.0-47.0) % MCHC (32-36) g/dl RDW (11.5-14.5) % Monocytes % (0-9) % Sodium (136-145) mmol/L Potassium (3.4-4.5) mmol/L Chloride (98-107) mmol/L BUN (8-23) mg/dL POC Glucose 145 H 149 H 173 H (70-110) mg/dL Random Glucose (74-109) mg/dL Calcium (8.8-10.2) mg/dL Iron (37-145) ug/dL 07/27/18 07/27/18 07/27/18 Range/Units 06:28 06:28 07:30 RBC 2.92 L (3.80-5.40) M/uL Hgb 8.2 L (11.6-16.0) gm/dl Hct 27.1 L (35.0-47.0) % MCHC 30.3 L (32-36) g/dl RDW 15.6 H (11.5-14.5) % Monocytes % 11.0 H (0-9) % Sodium 133 L (136-145) mmol/L Potassium 5.2 H (3.4-4.5) mmol/L Chloride 96 L (98-107) mmol/L BUN 25 H (8-23) mg/dL POC Glucose 137 H (70-110) mg/dL Random Glucose 121 H (74-109) mg/dL Calcium (8.8-10.2) mg/dL Iron (37-145) ug/dL 07/27/18 07/28/18 07/28/18 Range/Units 17:00 07:30 17:10 RBC (3.80-5.40) M/uL Hgb (11.6-16.0) gm/dl Hct (35.0-47.0) % MCHC (32-36) g/dl RDW (11.5-14.5) % Monocytes % (0-9) % Sodium (136-145) mmol/L Potassium (3.4-4.5) mmol/L Chloride (98-107) mmol/L BUN (8-23) mg/dL POC Glucose 170 H 138 H 165 H (70-110) mg/dL Random Glucose (74-109) mg/dL Calcium (8.8-10.2) mg/dL Iron (37-145) ug/dL 07/29/18 07/29/18 07/29/18 Range/Units 06:29 06:29 07:54 RBC 2.56 L (3.80-5.40) M/uL Hgb 7.2 L (11.6-16.0) gm/dl Hct 24.1 L (35.0-47.0) % MCHC 29.9 L (32-36) g/dl RDW 15.5 H (11.5-14.5) % Monocytes % (0-9) % Sodium (136-145) mmol/L Potassium 4.6 H (3.4-4.5) mmol/L Chloride (98-107) mmol/L BUN (8-23) mg/dL POC Glucose 118 H (70-110) mg/dL Random Glucose 119 H (74-109) mg/dL Calcium 8.4 L (8.8-10.2) mg/dL Iron 23 L (37-145) ug/dL 07/29/18 07/30/18 07/30/18 Range/Units 17:00 07:14 16:46 RBC (3.80-5.40) M/uL Hgb (11.6-16.0) gm/dl Hct (35.0-47.0) % MCHC (32-36) g/dl RDW (11.5-14.5) % Monocytes % (0-9) % Sodium (136-145) mmol/L Potassium (3.4-4.5) mmol/L Chloride (98-107) mmol/L BUN (8-23) mg/dL POC Glucose 165 H 122 H 151 H (70-110) mg/dL Random Glucose (74-109) mg/dL Calcium (8.8-10.2) mg/dL Iron (37-145) ug/dL 07/30/18 07/31/18 Range/Units 17:04 06:35 RBC (3.80-5.40) M/uL Hgb 7.3 L (11.6-16.0) gm/dl Hct 24.8 L (35.0-47.0) % MCHC (32-36) g/dl RDW (11.5-14.5) % Monocytes % (0-9) % Sodium (136-145) mmol/L Potassium (3.4-4.5) mmol/L Chloride (98-107) mmol/L BUN (8-23) mg/dL POC Glucose 118 H (70-110) mg/dL Random Glucose (74-109) mg/dL Calcium (8.8-10.2) mg/dL Iron (37-145) ug/dL Condition at Discharge: (2) Stable Discharge Medications - Discharge Medications Home Medications: Ambulatory Orders Atorvastatin Calcium [Lipitor] 10 mg PO DAILY 10/10/17 [Last Taken Unknown] Citalopram Hydrobromide [Citalopram HBr] 20 mg PO DAILY 10/10/17 [Last Taken Unknown] Fesoterodine Fumarate [Toviaz] 8 mg PO DAILY 10/10/17 [Last Taken Unknown] Levothyroxine Sodium [Synthroid] 150 mcg PO DAILY 10/10/17 [Last Taken Unknown] Losartan Potassium [Cozaar] 25 mg PO DAILY 10/10/17 [Last Taken Unknown] Meloxicam 15 mg PO DAILY 10/10/17 [Last Taken Unknown] Metformin HCl 1,000 mg PO BID 10/10/17 [Last Taken Unknown] Metoprolol Succinate [Toprol Xl] 25 mg PO DAILY 10/10/17 [Last Taken Unknown] Pioglitazone HCl [Actos] 45 mg PO DAILY 10/10/17 [Last Taken Unknown] Discharge Plan - Discharge Instructions Activity at Discharge: As Per Physical Therapy Diet at Discharge: Advance to Usual Diet Additional Instructions: -Continue taking Iron twice a day at home -Take the Ultram and Broadway as needed for pain control -Follow-up with Dr. Aj for a 1 month follow-up -Continue with PT outpatient at [facility] Quality Measures - Quality Measures Quality Measures: Advance Directives, Documentation of Current Medications in Medical Record, Elder Maltreatment Screen and Follow-Up Plan, Screening for High Blood Pressure and F/U Documented - Current Medications Quality Measure: Measure #130: Documentation of Current Medications Documentation of Current Medications: <Current Medications Documented/Reviewed> [G8427] - Blood Pressure Screening Quality Measure: Screening for High Blood Pressure and Follow-Up Documented Does Patient Have Any of the Following: Active Dx of HTN Blood Pressure Classification: Normal BP Reading Systolic Measurement: 102 Diastolic Measurement: 49 Screening for High Blood Pressure: Patient Exclusion, Hx of HTN [G9744] - Advance Directives Quality Measure: Measure #47: Care Plan Advance Directives Established: No Advance Directives Information Provided To Patient: No Advance Directives on File: No Living Will: No Power of Discharge Rn: No Advance Care Planning: Not Discussed or Documented [[id number]] - Elder Abuse Suspicion Index Screening: Elder Abuse Suspicion Index Screening Rely on people for bathing, dressing, shopping, banking, etc: Yes Prevented from getting food, clothes, medication, etc: No Made to feel shamed or threatened by someone: No Forced to sign papers or use money against will: No Feel afraid, touched in ways not wanted or hurt physically: No Poor eye contact, withdrawn, malnourished, cuts or bruises: No Screening Result: Negative result EASI Reference Information: Mary RICH, Dimitrios C, Juliana D, Rui Prieto.Development and validation of a tool to assist physicians identification of elder abuse: The Elder Abuse Suspicion Index (EASI ). Journal of Elder Abuse and Neglect, 2008; 20 (3): 276-300. - Elder Maltreatment Screen Quality Measures: Elder Maltreatment Screen and Follow-Up Plan Elder Maltreatment Screen: <Negative, No Follow-Up Plan Required> [G8734]
[2018-07-31] MEDS: CELECOXIB 100 MG CAPSULE PO SCH (10:29)
[2018-07-31] MEDS: CITALOPRAM 20 MG TABLET PO SCH (10:29)
[2018-07-31] MEDS: PIOGLITAZONE HCL 15 MG TABLET PO SCH (10:29)
[2018-07-31] MEDS: SENNOSIDES/DOCUSATE SODIUM UD CAPSULE PO SCH (10:29)
[2018-07-31] MEDS: ASPIRIN 81 MG TABEC PO SCH (10:29)
[2018-07-31] MEDS: ASCORBIC ACID 500 MG TAB PO SCH (10:29)
[2018-07-31] MEDS: METOPROLOL SUCC 25 MG TAB.ER PO SCH (10:29)
--- NOTE | 2018-07-31 14:35 | Physical Therapy Tx Note ---
Physical Therapy Tx Note - Treatment Note Tolerated: Good Total Time Spent With Patient: 35 Physical Therapy Tx Note: Detail (Patient states no new complaints. Patient was supine in bed upon BUSINESS ENTERPRISE OFFICER arrival. Patient performed the following exercises seated on edge of bed with yellow theraband x10 reps each: bicep curls, shoulder flexion, shoulder abduction, shoulder horizontal abduction, shoulder horizontal adduction, shoulder adduction, tricep extension, and shoulder extension. Patient was given HEP consisting of above exercises. Patient reports good understanding of HEP. Patient transferred sit to and from stand x3 independently. Patient ambulated 10 feet x3 with wheeled walker independently. Patient was left seated in bathroom with pull cord within reach. ) Physical Therapy Problem List: Detail (1) Swelling of R LE 2) Pain in R hip 3) Limited R hip ROM 4) Limited strength B LE) Physical Therapy Goals: 1) Patient will ambulate a flight of 3 stairs with a folded walker, hand rail, and supervision for safety. (Goal Met). 2) Patient will improve MMT grade by 1/3 in all initially weak musculature to aid in functional strength during activities such as walking. 3) Patient will report 0 -3 pain level during exercise to help improve tolerance to physical activity. Physical Therapy Plan: Patient discharged from inpatient PT at this time.
[2018-07-31] MEDS ORDERED: HYDROCODONE/APAP 10/325 TABLET PO ONE (19:24)
--- NOTE | 2018-08-01 09:50 | Rehab Discharge Summary ---
Patient Information - Patient Information Diagnosis: R Hip OA Ordered Treatment: PT Evaluate and Treat Surgery: Yes (R HARMAN) Date of Surgery: 07/22/18 Past Medical/Surgical Hx: PAST MEDICAL/SURGICAL HISTORY Past Surgical History Bilateral Shoulder Left Hip Replacement Right Knee Replacement Bilateral Mastectomy Cholecystectomy Appendectomy Hysterectomy PMH - Respiratory Hx Respiratory Disorders No Hx Asthma No Hx Bronchitis No Hx Chronic Obstructive No Pulmonary Disease (COPD) Hx Dyspnea No Hx Pneumonia No Hx Pulmonary Embolism No Hx Sleep Apnea Yes Hx Tuberculosis No Hx of CPAP Yes: Pt does not use. PMH - Cardiovascular Hx Cardiovascular Disorders Yes Hx Abnormal EKG No Hx Cardiac Catheterization No Hx Chest Pain No Hx Congestive Heart Failure No Hx Deep Vein Thrombosis No Hx Edema No Hx Heart Attack No Hx Hypertension Yes Hx Hypotension No Hx Irregular Heartbeat Yes: afib Hx Palpitations No Hx Pacemaker/Defibrillator No Hx Vascular Disease No PMH - Neuro Hx Neurological Disorders No PMH - GI Hx Gastrointestinal Disorders No Hx Abdominal Pain No Hx Celiac Disease No Hx Crohn's Disease No Hx Diverticulitis No Hx Gastrointestinal Bleed No Hx Gastroesophageal Reflux Yes Hx Hepatitis/Jaundice No Hx Hiatal Hernia Yes Hx Irritable Bowel No Hx Liver Disease No Hx Nausea/Vomiting No Hx Obstructive Bowel No Hx Pancreatitis No Hx Rectal Bleeding No Hx Ulcer Yes: within the last couple years/Dr. Del Rosario PMH - Hx Genitourinary Disorders No Hx Bladder Problem No Hx Dialysis No Hx Kidney Stones No Hx Renal Disease No Hx Urinary Tract Infection Yes: Pt completed Cipro for UTI before this surgery. Comment: Hysterectomy, urinary incontinence PMH - Endocrine Hx Endocrine Disorders Yes Hx Diabetes Yes: DM2 Hx Thyroid Disease Yes: Hypo PMH - Musculoskeletal Hx Musculoskeletal Disorders No Hx Arthritis Yes Hx Back Injury No Hx Fibromyalgia No Hx Gout No Hx Musculoskeletal Disease No Hx Osteoporosis No PMH - Psych Hx Psychiatric Problems Yes Hx Anxiety Yes Hx Behavior Problems No Hx Depression Yes Hx Emotional Abuse No Hx Sexual Abuse No Hx Suicide Attempt No Major Depressive Episode No Feelings of Hopelessness No PMH - Hematology/Oncology Hx Hematology/Oncology Yes Disorders Hx Anemia Yes: takes iron 325mg bid Hx Blood Disorders No Hx Bruising No Hx Cancer Yes: Breast Hx Chemotherapy Yes Hx Radiation Therapy No Hx Clotting Problems No Hx Sickle Cell Disease No Hx Unexplained Bleeding No Hx Blood Transfusion Reaction No Premorbid Status: Detail (Pt reports ambulating with either her 2WW or 4WW FORM WORKER. Pt was sitting on extended tub bench to complete showering. She was able to shower from seated position IND and dress IND FORM WORKER using scaffold setter and sock aid.) Social History: Detail (Pt lives with spouse in a 2-story house with basement. She primarily lives on first floor but states that on the rare occassion she had to go upstairs, she did so on hands and knees. Pt mostly uses garage entrance which has 2 steps to enter. Alternate entry has 3 steps up onto deck, then once on deck there is one more step to enter house. Pt has grab bars throughout home including in bathroom. She has an elevated toilet seat, extended tub bench, hand held shower head, curtain enclosure around shower, scaffold setter, sock aid, 2WW and 4WW.) Precautions: [place], Fall, Other (hip precautions) Subjective Information - Subjective Information Per Patient (Patient reported R hip pain and R LE swelling.) Objective Data - Pain Pain Present: Yes - Mental Status Patient Orientation: Oriented x3 - Visual Perception Appears within normal limits for therapeutic activities - ROM Not within normal limits (Patient R hip ROM is limited due to status post- surgery) - Strength/Tone Not within normal limits (Patients R LE strength is limited due to status post surgery. Patient L LE strength is within functional limits.) - Bed Mobility Independent (Patient was IND with all bed mobility.) - Transfers Independent (Patient was IND with all transfers.) - Balance Balance Sitting: Good Balance Standing: Good - Sensation Intact - Gait Detail (Patient was ambulating community distances with a front wheeled walker and supervision for safety. Patient was also able to ambulate a flight of 3 stairs with a cane, hand rail and supervision for safety.) Therapy Assessment - Therapy Assessment Detail (Patient is IND with all mobility and transfers) Patient Education - Patient Education Teaching Topic: Exercise/Activity (ankle pumps, hip abd, LAQ, heel slides, glut sets, quad sets, hamstring sets.) Response: Return Demonstration, Verbalize Understanding Teaching Method: Demonstration, Handout Teaching Recipient: Patient Barriers To Learning: Age Related Problem List - Problem List Physical Therapy Problem List: Detail (1) Swelling of R LE 2) Pain in R hip 3) Limited R hip ROM 4) Limited strength B LE) Occupational Therapy Problem List: Detail (1. Decreased endurance to complete ADLs 2. Decreased independence and safety with ADLs 3. BUE weakness) Goals - Goals Physical Therapy Goals: 1) Patient will ambulate a flight of 3 stairs with a folded walker, hand rail, and supervision for safety. (Goal Met). 2) Patient will improve MMT grade by 1/3 in all initially weak musculature to aid in functional strength during activities such as walking. (Goal Not Met: Patient will continue to work on strengthening in OP PT). 3) Patient will report 0-3 pain level during exercise to help improve tolerance to physical activity. ( Goal Partially Met: Patients pain reports varied) Occupational Therapy Goals: 1. Pt to be independent with UB and LB drsg using ADL equipment. 2. Pt to be independent with showering using AD. 3. Increase edurance to complete ADLs. 4. Pt able to ambulate household distances safely and IND using 2WW Prognosis - Prognosis Good Plan - Plan Physical Therapy Plan: Patient discharged from inpatient PT at this time. Patient will continue with OP PT. Occupational Therapy Plan: Pt to be treated by OT 2-4 times a week M- to address limitations with ADL independence and safety, decreased endurance to complete ADLs, and BUE weakness.
== END 2018-07-31 11:50 | disposition home or self-care (01) | DRG 566 ==
LOC: MEDSURG 07-25 12:22
PROVIDERS: ADMIT Emergency Medicine; ATTEND Emergency Medicine
DX: Z96.641 Presence of right artificial hip joint (principal); E11.9 Type 2 diabetes mellitus without complications; E03.9 Hypothyroidism, unspecified; E87.5 Hyperkalemia; I10 Essential (primary) hypertension; E78.00 Pure hypercholesterolemia, unspecified; I48.91 Unspecified atrial fibrillation; D64.9 Anemia, unspecified; R32 Unspecified urinary incontinence; K59.00 Constipation, unspecified; K21.9 Gastro-esophageal reflux disease without esophagitis; K44.9 Diaphragmatic hernia without obstruction or gangrene; M19.90 Unspecified osteoarthritis, unspecified site; Z85.3 Personal history of malignant neoplasm of breast
CPT/HCPCS: 36416; 80048; 81003; 82948; 83540; 85014; 85018; 85025; 85027; 97110; 97530; 97535; 99306; 99309; 99316; J1650